=== PATIENT | female | born 1980 | race Caucasian/White ===

== ENCOUNTER 2016-07-20 01:17 | Emergency (ER) | payer SELFPAY ==
[2016-07-20 01:29] VITALS: BP 159/90; PULSE 84; RESP 161; TEMP 98.3; O2SAT 100
[2016-07-20] MEDS ORDERED: Albuterol-Ipratrop 3 mg / 0.5 (3 ml) UD INH STA (01:36)
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
== END 2016-07-20 02:51 | disposition home or self-care (01) ==
LOC: H.ER 01:17
DX: F41.0 Panic disorder [episodic paroxysmal anxiety] (principal); J45.909 Unspecified asthma, uncomplicated

== ENCOUNTER 2016-09-27 01:30 | Emergency (ER) | payer SELFPAY ==
[2016-09-27] MEDS ORDERED: Oxycodone/Acetaminophen 5/325 mg Tab PO STA (01:52)
[2016-09-27 01:53] VITALS: BP 144/92; PULSE 89; RESP 18; TEMP 99.1; O2SAT 100
[2016-09-27] MEDS ORDERED: Oxycodone/Acetaminophen 5/325 mg Tab ONE (01:54)
[2016-09-27 02:34] LABS: BARBITURATES, UR NEGATIVE (NEGATIVE); BENZODIAZEPINES, UR NEGATIVE (NEGATIVE); OPIATES, UR NEGATIVE (NEGATIVE); PHENCYCLIDINE, UR NEGATIVE (NEGATIVE)
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
== END 2016-09-27 06:00 | disposition home or self-care (01) ==
LOC: H.ER 01:30
DX: S59.002A Unspecified physeal fracture of lower end of ulna, left arm, initial encounter for closed fracture (principal); S09.90XA Unspecified injury of head, initial encounter; S99.922A Unspecified injury of left foot, initial encounter; Y04.0XXA Assault by unarmed brawl or fight, initial encounter; Y92.89 Other specified places as the place of occurrence of the external cause
CPT/HCPCS: 29105; 70450; 73080; 73630; 81025; 99284; G0480

== ENCOUNTER 2017-02-09 11:10 | Inpatient (IN) | payer MEDICAID, OTHER ==
[2017-02-09 11:20] VITALS: BMI 21.6
[2017-02-09] MEDS ORDERED: Morphine 4 MG/ML VIAL ONE (11:22)
[2017-02-09] MEDS ORDERED: Sodium Chloride 0.9% 1,000 ML IV STA (11:25)
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
--- NOTE | 2017-02-09 18:17 | RAD ---
PROCEDURE: Radiographs of the Left Forearm HISTORY: pain, deformity COMPARISON: None available. TECHNIQUE: Frontal and lateral views obtained. FINDINGS: BONES: Transverse fracture through the proximal diaphysis of the left radius is appreciated with an oblique fracture which is comminuted through the proximal diaphysis of the left ulna is identified. Both fractures appear distracted proximally and medially. No apparent dislocation throughout the right throughout the left wrist or elbow. OTHER FINDINGS: None. IMPRESSION: Proximal distracted fractures of the proximal diaphyses of the radius and ulna are identified.
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
[2017-02-09] MEDS ORDERED: IBUPROFEN PO PRN (19:12)
[2017-02-09] MEDS ORDERED: Albuterol-Ipratrop 3 mg / 0.5 (3 ml) UD INH PRN (19:39)
[2017-02-10 07:26] LABS: HEMOGLOBIN 12.4 g/dL (12.0-16.0); WHITE BLOOD COUNT 9.6 K/uL (4.8-10.8)
[2017-02-10 07:37] LABS: INR 1.1 (0.9-1.2); PROTHROMBIN TIME 12.2 Seconds (9.8-13.1)
[2017-02-10 07:41] LABS: ALB/GLOB RATIO 1.1 (1.0-2.1); ALBUMIN 3.7 g/dL (3.5-5.0); ALT/SGPT 35 U/L (9-52); AST/SGOT 25 U/L (14-36); BLOOD UREA NITROGEN 7 mg/dl (7-17); CALCIUM 8.4 mg/dL (8.4-10.2); GFR AFRICAN-AMERICAN > 60; GFR NON-AFRICAN AMERICAN > 60; HDL CHOLESTEROL 46 MG/DL (30-70)
[2017-02-10 07:52] LABS: LDL CHOLESTEROL 66 mg/dL (0-129); T4 9.36 ug/dl (5.5-11.0)
[2017-02-10 07:53] LABS: MEAN CELL VOLUME 91.6 fl (81.0-99.0); MEAN CORPUSCULAR HEMOGLOBIN 30.6 pg (27.0-31.0); MEAN CORPUSCULAR HGB CONC 33.4 g/dL (33.0-37.0); RBC 4.05 Mil/uL (3.80-5.20); RED CELL DISTRIBUTION WIDTH 14.3 % (11.5-14.5)
--- NOTE | 2017-02-10 09:28 | RAD ---
HISTORY: Hx Asthma COMPARISON: No prior. TECHNIQUE: Chest PA and lateral FINDINGS: LUNGS: No active pulmonary disease. PLEURA: No significant pleural effusion identified. No pneumothorax apparent. CARDIOVASCULAR: Normal. OSSEOUS STRUCTURES: No significant abnormalities. VISUALIZED UPPER ABDOMEN: Normal. OTHER FINDINGS: None. IMPRESSION: No interval acute cardiopulmonary disease appreciated.
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
[2017-02-10 12:41] LABS: SQUAMOUS EPITHIAL 11 /hpf (0-5); URINE BACTERIA OCC (<OCC); URINE BILIRUBIN NEGATIVE (NEGATIVE); URINE BLOOD SMALL (NEGATIVE); URINE CLARITY CLOUDY (Clear); URINE COLOR YELLOW (YELLOW); URINE GLUCOSE (UA) NEG (Normal); URINE LEUKOCYTE ESTERASE NEG Leu/uL (Negative); URINE NITRATE POSITIVE (NEGATIVE); URINE PROTEIN 30 mg/dL (NEGATIVE); URINE UROBILINOGEN 0.2-1.0 mg/dL (0.2-1.0)
[2017-02-10] MEDS ORDERED: methylPREDNISolone 75 MG in Sodium Chloride 0.9% 50 ML IV ONE (13:10)
[2017-02-10] MEDS ORDERED: methylPREDNISolone 40 MG in Sodium Chloride 0.9% 50 ML IVPB SCH (17:00)
[2017-02-10] MEDS: cefTRIAXone IV 1 gm in Dextros 50 ML IVPB SCH (18:12)
[2017-02-10] MEDS: Pantoprazole 40 mg EC Tab PO SCH (18:14)
[2017-02-10] MEDS: MethylPREDNISolone 40 mg Vial IVP SCH (18:56)
[2017-02-10] MEDS: Azithromycin 500 MG in Sodium Chloride 0.9% 250 ML IVPB SCH (18:59)
[2017-02-11] MEDS: MethylPREDNISolone 40 mg Vial IVP SCH ×3 (01:01→16:52)
[2017-02-11] MEDS ORDERED: Dextrose 5%/0.45% NS 1,000 ML IV SCH (09:45)
[2017-02-11] MEDS: Albuterol-Ipratrop 3 mg / 0.5 (3 ml) UD INH SCH ×3 (10:35→19:07)
[2017-02-11] MEDS: Pantoprazole 40 mg EC Tab PO SCH (10:45)
[2017-02-11 12:33] LABS: ABG ALLEN TEST YES; ARTERIAL BLOOD GAS HEMOGLOBIN 12.8 g/dL (11.7-17.4); ARTERIAL BLOOD GAS O2 CAPACITY 17.6 mL/dL (16-24); ARTERIAL BLOOD GAS O2 CONTENT 17.4 ML/dL (15-23); ARTERIAL BLOOD GAS O2 SAT 98.9 % (95-98); ARTERIAL BLOOD GAS PCO2 34 mm/Hg (35-45); ARTERIAL BLOOD GAS PH 7.43 (7.35-7.45); ARTERIAL BLOOD GAS PO2 99 mm/Hg (80-100); ARTERIAL BLOOD GAS TCO2 23.6 mmol/L (22-28)
[2017-02-11] MEDS: cefTRIAXone IV 1 gm in Dextros 50 ML IVPB SCH (13:31)
--- NOTE | 2017-02-11 13:55 | CP.PCM.PN ---
Subjective - Date & Time of Evaluation Date of Evaluation: 02/11/17 Time of Evaluation: 10:10 - Subjective Subjective: F/U Fx Forearm Pt with cough, scanty amount of phlegms with difficulty to bring up, c/o of chest congestion. Objective - Vital Signs/Intake and Output Vital Signs (last 24 hours): Temp Pulse Resp BP Pulse Ox 98.6 F 72 20 107/68 98 02/11/17 07:34 02/11/17 10:36 02/11/17 07:34 02/11/17 07:34 02/11/17 07:34 - Medications Medications: Current Medications Albuterol/Ipratropium (Duoneb 3 Mg/0.5 Mg (3 Ml) Ud) 3 ml INH RQ6 [facility] Last Admin: 02/11/17 13:10 Dose: 3 ml Hydromorphone HCl (Dilaudid) 1 mg IV Q4 PRN PRN Reason: Pain, severe (8-10) Last Admin: 02/11/17 10:43 Dose: 1 mg Ceftriaxone Sodium (Rocephin Iv 1 Gm Duplex) 50 mls @ 50 mls/hr IVPB DAILY@ 1315 KRISTEN PRN Reason: Protocol Last Admin: 02/11/17 13:31 Dose: 50 mls/hr Azithromycin 500 mg/ Sodium (Chloride) 250 mls @ 250 mls/hr IVPB DAILY@1330 KRISTEN PRN Reason: Protocol Last Admin: 02/10/17 18:59 Dose: 250 mls/hr Dextrose/Sodium Chloride (Dextrose 5%/0.45% Ns 1000 Ml) 1,000 mls @ 80 mls/hr IV .[id number] [facility] Stop: 02/12/17 09:37 Methylprednisolone (Solu-Medrol) 40 mg IVP Q8 [facility] Last Admin: 02/11/17 10:44 Dose: 40 mg Ondansetron HCl (Zofran Inj) 4 mg IVP Q4 PRN PRN Reason: Nausea/Vomiting Last Admin: 02/11/17 02:13 Dose: 4 mg Pantoprazole Sodium (Protonix Ec Tab) 40 mg PO DAILY [facility] Last Admin: 02/11/17 10:45 Dose: Not Given Tramadol HCl (Ultram) 50 mg PO Q6 PRN PRN Reason: Pain, moderate (4-7) Last Admin: 02/11/17 13:31 Dose: 50 mg - Labs Labs: 02/10/17 07:14 02/10/17 07:14 PT 12.2 Seconds (9.8-13.1) 02/10/17 07:14 INR 1.1 (0.9-1.2) 02/10/17 07:14 APTT 31.7 Seconds (25.6-37.1) 02/10/17 12:15 - Constitutional Appears: No Acute Distress - Head Exam Head Exam: NORMAL INSPECTION - Eye Exam Eye Exam: PERRL - ENT Exam ENT Exam: Normal Exam - Neck Exam Neck Exam: Normal Inspection - Respiratory Exam Respiratory Exam: Decreased Breath Sounds (at bases), Rhonchi (few scattered at bases) - Cardiovascular Exam Cardiovascular Exam: REGULAR RHYTHM, Murmur (systolic, 2/6 LSB) - GI/Abdominal Exam GI & Abdominal Exam: Soft, Normal Bowel Sounds - Extremities Exam Additional comments: LUE immobilized, neuromuscular status distal good. - Back Exam Back Exam: NORMAL INSPECTION - Neurological Exam Neurological Exam: Alert, CN II-XII Intact, Oriented x3. absent: Motor Sensory Deficit - Psychiatric Exam Psychiatric exam: Normal Affect, Normal Mood - Skin Skin Exam: Warm Assessment and Plan (1) Forearm fractures, both bones, closed Status: Acute (2) Asthmatic bronchitis Status: Acute - Assessment and Plan (Free Text) Plan: F/U ABG, Brownlee flowTx, continue Zithromax, Rocephin Solumedrol and rest ot of Tx. Pt is not clear for surgery.
[2017-02-11] MEDS: Azithromycin 500 MG in Sodium Chloride 0.9% 250 ML IVPB SCH (14:46)
--- NOTE | 2017-02-11 16:55 | CARD ---
APPROVED REPORT EKG Measurement Heart [id number] <Conclusion> Poor data quality, interpretation may be adversely affected Normal sinus rhythm Possible Left atrial enlargement T wave abnormality, consider anterior ischemia Abnormal ECG
[2017-02-12] MEDS: MethylPREDNISolone 40 mg Vial IVP SCH ×3 (00:05→16:55)
[2017-02-12] MEDS: Albuterol-Ipratrop 3 mg / 0.5 (3 ml) UD INH SCH ×4 (01:12→20:10)
[2017-02-12 06:07] LABS: HEMOGLOBIN 12.2 g/dL (12.0-16.0); MEAN CELL VOLUME 91.9 fl (81.0-99.0); MEAN CORPUSCULAR HEMOGLOBIN 29.9 pg (27.0-31.0); MEAN CORPUSCULAR HGB CONC 32.5 g/dL (33.0-37.0); RBC 4.08 Mil/uL (3.80-5.20); RED CELL DISTRIBUTION WIDTH 14.3 % (11.5-14.5); WHITE BLOOD COUNT 16.1 K/uL (4.8-10.8)
[2017-02-12 06:15] LABS: BLOOD UREA NITROGEN 9 mg/dl (7-17); CALCIUM 9.1 mg/dL (8.4-10.2); GFR AFRICAN-AMERICAN > 60; GFR NON-AFRICAN AMERICAN > 60
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
[2017-02-12] MEDS: Pantoprazole 40 mg EC Tab PO SCH (08:58)
[2017-02-12] MEDS: Azithromycin 500 MG in Sodium Chloride 0.9% 250 ML IVPB SCH (13:55)
[2017-02-12] MEDS: cefTRIAXone IV 1 gm in Dextros 50 ML IVPB SCH (13:57)
--- NOTE | 2017-02-12 14:06 | CP.PCM.PN ---
Subjective - Date & Time of Evaluation Date of Evaluation: 02/12/17 - Subjective Subjective: F/U Fx R Forearm. SOB, no cough, no chest congestion. Objective - Vital Signs/Intake and Output Vital Signs (last 24 hours): Temp Pulse Resp BP Pulse Ox 98.0 F 68 18 111/68 96 02/12/17 08:01 02/12/17 08:01 02/12/17 08:01 02/12/17 08:01 02/12/17 08:01 - Medications Medications: Current Medications Albuterol/Ipratropium (Duoneb 3 Mg/0.5 Mg (3 Ml) Ud) 3 ml INH RQ6 [facility] Last Admin: 02/12/17 13:25 Dose: 3 ml Hydromorphone HCl (Dilaudid) 1 mg IV Q4 PRN PRN Reason: Pain, severe (8-10) Last Admin: 02/12/17 10:00 Dose: 1 mg Ceftriaxone Sodium (Rocephin Iv 1 Gm Duplex) 50 mls @ 50 mls/hr IVPB DAILY@ 1315 [facility] PRN Reason: Protocol Last Admin: 02/12/17 13:57 Dose: 50 mls/hr Azithromycin 500 mg/ Sodium (Chloride) 250 mls @ 250 mls/hr IVPB DAILY@1330 [facility] PRN Reason: Protocol Last Admin: 02/12/17 13:55 Dose: 250 mls/hr Methylprednisolone (Solu-Medrol) 40 mg IVP Q8 [facility] Last Admin: 02/12/17 08:56 Dose: 40 mg Ondansetron HCl (Zofran Inj) 4 mg IVP Q4 PRN PRN Reason: Nausea/Vomiting Last Admin: 02/12/17 05:46 Dose: 4 mg Pantoprazole Sodium (Protonix Ec Tab) 40 mg PO DAILY [facility] Last Admin: 02/12/17 08:58 Dose: 40 mg Tramadol HCl (Ultram) 50 mg PO Q6 PRN PRN Reason: Pain, moderate (4-7) Last Admin: 02/12/17 13:54 Dose: 50 mg - Labs Labs: 02/12/17 05:30 02/12/17 05:30 PT 12.2 Seconds (9.8-13.1) 02/10/17 07:14 INR 1.1 (0.9-1.2) 02/10/17 07:14 APTT 31.7 Seconds (25.6-37.1) 02/10/17 12:15 - Constitutional Appears: No Acute Distress - Head Exam Head Exam: NORMAL INSPECTION - Eye Exam Eye Exam: PERRL - ENT Exam ENT Exam: Normal Exam - Neck Exam Neck Exam: Normal Inspection - Respiratory Exam Respiratory Exam: Decreased Breath Sounds (at bases) - Cardiovascular Exam Cardiovascular Exam: REGULAR RHYTHM, Murmur (systolic 2/6 LSB) - GI/Abdominal Exam GI & Abdominal Exam: Soft, Normal Bowel Sounds - Extremities Exam Additional comments: LUE immobilized, neuromuscular status distal good - Back Exam Back Exam: NORMAL INSPECTION - Neurological Exam Neurological Exam: Alert, CN II-XII Intact, Oriented x3. absent: Motor Sensory Deficit - Psychiatric Exam Psychiatric exam: Normal Affect, Normal Mood - Skin Skin Exam: Warm Assessment and Plan (1) Forearm fractures, both bones, closed Status: Acute (2) Asthmatic bronchitis Status: Acute - Assessment and Plan (Free Text) Plan: EKG: T wave abnormality. f/u Echo, Continue Solumedrol, Duoneb. Cardiac consult.
[2017-02-13] MEDS: MethylPREDNISolone 40 mg Vial IVP SCH ×3 (00:32→16:32)
[2017-02-13] MEDS: Albuterol-Ipratrop 3 mg / 0.5 (3 ml) UD INH SCH ×4 (01:04→20:21)
[2017-02-13] MEDS: Pantoprazole 40 mg EC Tab PO SCH (09:09)
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
--- NOTE | 2017-02-13 09:43 | CARD ---
APPROVED REPORT EXAM: Two-dimensional and M-mode echocardiogram with Doppler and color Doppler. Other Information Quality : GoodRhythm : NSR INDICATION Abnormal EKG/Arrhythmia Pre-Op 2D DIMENSIONS IVSd0.81 (0.7-1.1cm)LVDd4.40 (3.9-5.9cm) LVOT Diameter2.04 (1.8-2.4cm)PWd0.72 (0.7-1.1cm) IVSs1.19 (0.8-1.2cm)LVDs2.64 (2.5-4.0cm) FS (%) 39.9 %PWs1.26 (0.8-1.2cm) M-Mode DIMENSIONS Left Atrium (MM)3.39 (2.5-4.0cm)IVSd0.86 (0.7-1.1cm) Aortic Root2.46 (2.2-3.7cm)LVDd4.54 (4.0-5.6cm) Aortic Cusp Exc.1.77 (1.5-2.0cm)PWd0.86 (0.7-1.1cm) IVSs1.41 cmFS (%) 49 % LVDs2.32 (2.0-3.8cm)PWs1.27 cm Mitral Valve MV E Gzvmyoec636.8cm/sMV DECEL [id number] A Ptglskjn72.1cm/s MV ZLW38eoQ/A ratio3.3MVA (PHT)3.90cm2 TDI Lateral E' Peak V12.87cm/sMedial E' Peak V14.34cm/sE/Lateral E'10.2 E/Medial E'9.2 Pulmonary Valve PV Peak Tdjejvqt28.3cm/s LEFT VENTRICLE The left ventricle is normal size. There is normal left ventricular wall thickness. The left ventricular function is normal. The left ventricular ejection fraction is 55-60% There is normal LV segmental wall motion. The left ventricular diastolic function is normal. No left ventricle thrombus noted on this study. There is no ventricular septal defect visualized. There is no left ventricular aneurysm. There is no mass noted in the left ventricle. RIGHT VENTRICLE The right ventricle is normal size. There is normal right ventricular wall thickness. The right ventricular systolic function is normal. ATRIA The left atrium size is normal. The right atrium size is normal. The interatrial septum is intact with no evidence for an atrial septal defect. AORTIC VALVE The aortic valve is normal in structure. No aortic regurgitation is present. There is no aortic valvular stenosis. There is no aortic valvular vegetation. MITRAL VALVE The mitral valve is normal in structure. There is no evidence of mitral valve prolapse. There is no mitral valve stenosis. There is no mitral valve regurgitation noted. TRICUSPID VALVE The tricuspid valve is normal in structure. There is no tricuspid valve regurgitation noted. There is no tricuspid valve prolapse or vegetation. There is no tricuspid valve stenosis. PULMONIC VALVE The pulmonary valve is normal in structure. There is no pulmonic valvular regurgitation. There is no pulmonic valvular stenosis. GREAT VESSELS The aortic root is normal in size. The ascending aorta is normal in size. The IVC is normal in size and collapses >50% with inspiration. PERICARDIAL EFFUSION The pericardium appears normal. There is no pleural effusion. <Conclusion> Normal Echocardiogram
--- NOTE | 2017-02-13 11:56 | CARD ---
APPROVED REPORT EKG Measurement Heart [id number] IA [id number] [id number] <Conclusion> Normal sinus rhythm with sinus arrhythmia Possible Left atrial enlargement Nonspecific T wave abnormality Abnormal ECG
[2017-02-13] MEDS: Azithromycin 500 MG in Sodium Chloride 0.9% 250 ML IVPB SCH (12:52)
[2017-02-13] MEDS: cefTRIAXone IV 1 gm in Dextros 50 ML IVPB SCH (12:52)
--- NOTE | 2017-02-13 15:01 | CP.PCM.PN ---
Subjective - Date & Time of Evaluation Date of Evaluation: 02/13/17 Time of Evaluation: 11:40 - Subjective Subjective: F/U Fx. R Forearm no AD, no Chest congestion, occasional dry cough Objective - Vital Signs/Intake and Output Vital Signs (last 24 hours): Temp Pulse Resp BP Pulse Ox 98.1 F 78 20 126/75 98 02/13/17 07:43 02/13/17 07:43 02/13/17 07:43 02/13/17 07:43 02/13/17 07:43 - Medications Medications: Current Medications Albuterol/Ipratropium (Duoneb 3 Mg/0.5 Mg (3 Ml) Ud) 3 ml INH RQ6 [facility] Last Admin: 02/13/17 13:19 Dose: 3 ml Hydromorphone HCl (Dilaudid) 1 mg IV Q4 PRN PRN Reason: Pain, severe (8-10) Last Admin: 02/13/17 13:29 Dose: 1 mg Ceftriaxone Sodium (Rocephin Iv 1 Gm Duplex) 50 mls @ 50 mls/hr IVPB DAILY@ 1315 [facility] PRN Reason: Protocol Last Admin: 02/13/17 12:52 Dose: 50 mls/hr Azithromycin 500 mg/ Sodium (Chloride) 250 mls @ 250 mls/hr IVPB DAILY@1330 [facility] PRN Reason: Protocol Last Admin: 02/13/17 12:52 Dose: 250 mls/hr Methylprednisolone (Solu-Medrol) 40 mg IVP Q8 [facility] Last Admin: 02/13/17 09:08 Dose: 40 mg Ondansetron HCl (Zofran Inj) 4 mg IVP Q4 PRN PRN Reason: Nausea/Vomiting Last Admin: 02/12/17 05:46 Dose: 4 mg Pantoprazole Sodium (Protonix Ec Tab) 40 mg PO DAILY [facility] Last Admin: 02/13/17 09:09 Dose: 40 mg Tramadol HCl (Ultram) 50 mg PO Q6 PRN PRN Reason: Pain, moderate (4-7) Last Admin: 02/13/17 00:30 Dose: 50 mg - Labs Labs: 02/12/17 05:30 02/12/17 05:30 PT 12.2 Seconds (9.8-13.1) 02/10/17 07:14 INR 1.1 (0.9-1.2) 02/10/17 07:14 APTT 31.7 Seconds (25.6-37.1) 02/10/17 12:15 - Constitutional Appears: No Acute Distress - Head Exam Head Exam: NORMAL INSPECTION - Eye Exam Eye Exam: PERRL - ENT Exam ENT Exam: Normal Exam - Neck Exam Neck Exam: Normal Inspection - Respiratory Exam Respiratory Exam: NORMAL BREATHING PATTERN - Cardiovascular Exam Cardiovascular Exam: REGULAR RHYTHM, Murmur (systolic 2/6 LSB) - GI/Abdominal Exam GI & Abdominal Exam: Soft, Normal Bowel Sounds - Extremities Exam Additional comments: LUE immobilized, neuromuscular status distal good. - Back Exam Back Exam: NORMAL INSPECTION - Neurological Exam Neurological Exam: Alert, CN II-XII Intact, Oriented x3. absent: Motor Sensory Deficit - Psychiatric Exam Psychiatric exam: Normal Affect, Normal Mood - Skin Skin Exam: Warm Assessment and Plan (1) Forearm fractures, both bones, closed Status: Acute (2) Asthmatic bronchitis Status: Resolved - Assessment and Plan (Free Text) Plan: EKG , ECHO (normal) , blood test were reviewed , wbc 16.1 steroids , Cardioligy cleared , Patient is medically cleared for Surgery, continue Solu Medrol , Duo Neb and rest of medicatiions.
[2017-02-14] MEDS: MethylPREDNISolone 40 mg Vial IVP SCH ×3 (00:34→17:48)
[2017-02-14] MEDS: Albuterol-Ipratrop 3 mg / 0.5 (3 ml) UD INH SCH ×4 (01:00→19:47)
[2017-02-14] MEDS: Pantoprazole 40 mg EC Tab PO SCH (09:48)
[2017-02-14] MEDS ORDERED: Propofol 10 mg/ml Inj (20 ML) ONE (10:02)
[2017-02-14] MEDS ORDERED: Lidocaine 1% 5ml Abboject IV ONE (10:03)
[2017-02-14] MEDS ORDERED: Midazolam 2 MG/2 ML VIAL ONE (10:03)
[2017-02-14] MEDS ORDERED: Dexamethasone 4 mg/1 ml ONE (10:03)
[2017-02-14] MEDS ORDERED: Ropivacaine 0.5% 30ML IV ONE (10:50)
[2017-02-14] MEDS ORDERED: ceFAZolin IV 1 gm in Dextrose 1 GM/50 ML BAG IVPB ONE (10:51)
[2017-02-14] MEDS ORDERED: ceFAZolin IV 1 gm in Dextrose 0 GM/0 ML BAG IVPB ONE (10:51)
[2017-02-14] MEDS ORDERED: Dextrose 5%/0.45% NS 1,000 ML IV ONE (11:58)
[2017-02-14] MEDS: cefTRIAXone IV 1 gm in Dextros 50 ML IVPB SCH (13:15)
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
--- NOTE | 2017-02-14 15:57 | RAD ---
PROCEDURE: Radiographs of the Left Forearm HISTORY: pt in pacu s/p ORIF COMPARISON: Left forearm radiograph 02/09/2017.. TECHNIQUE: Frontal and lateral views obtained. FINDINGS: Partial cast material obscures fine bone and soft-tissue detail. BONES: Patient status post open reduction internal fixation of mid diaphyseal radius and ulnar fractures of the left forearm via compression plates and transfixing screws separately reducing each fracture. No definite callus formation is appreciated at this time. JOINT SPACES: Unremarkable. OTHER FINDINGS: None. IMPRESSION: Status post ORIF mid diaphyseal fractures of the left radius and ulna as discussed above.
--- NOTE | 2017-02-14 16:26 | CP.PCM.PN ---
Objective - Vital Signs/Intake and Output Vital Signs (last 24 hours): Temp Pulse Resp BP Pulse Ox 98.2 F 77 18 119/77 99 02/14/17 15:59 02/14/17 15:59 02/14/17 15:59 02/14/17 15:59 02/14/17 15:59 Intake and Output: 02/14/17 02/14/17 06:59 18:59 Intake Total 1000 Output Total 600 Balance 400 - Medications Medications: Current Medications Albuterol/Ipratropium (Duoneb 3 Mg/0.5 Mg (3 Ml) Ud) 3 ml INH RQ6 [facility] Last Admin: 02/14/17 14:33 Dose: Not Given Hydromorphone HCl (Dilaudid) 0.5 mg IV Q4 PRN PRN Reason: Pain, severe (8-10) Ceftriaxone Sodium (Rocephin Iv 1 Gm Duplex) 50 mls @ 50 mls/hr IVPB DAILY@ 1315 [facility] PRN Reason: Protocol Last Admin: 02/13/17 12:52 Dose: 50 mls/hr Azithromycin 500 mg/ Sodium (Chloride) 250 mls @ 250 mls/hr IVPB DAILY@1330 [facility] PRN Reason: Protocol Last Admin: 02/13/17 12:52 Dose: 250 mls/hr Cefazolin Sodium/Dextrose (Ancef Iv 1 Gm Duplex) 1 gm in 50 mls @ 50 mls/hr IVPB Q8 [facility] PRN Reason: Protocol Stop: 02/15/17 01:59 Methylprednisolone (Solu-Medrol) 40 mg IVP Q8 [facility] Last Admin: 02/14/17 09:48 Dose: 40 mg Ondansetron HCl (Zofran Inj) 4 mg IVP Q4 PRN PRN Reason: Nausea/Vomiting Last Admin: 02/12/17 05:46 Dose: 4 mg Pantoprazole Sodium (Protonix Ec Tab) 40 mg PO DAILY [facility] Last Admin: 02/14/17 09:48 Dose: Not Given Tramadol HCl (Ultram) 50 mg PO Q6 PRN PRN Reason: Pain, moderate (4-7) Last Admin: 02/13/17 23:33 Dose: 50 mg - Labs Labs: 02/12/17 05:30 02/12/17 05:30 PT 12.2 Seconds (9.8-13.1) 02/10/17 07:14 INR 1.1 (0.9-1.2) 02/10/17 07:14 APTT 31.7 Seconds (25.6-37.1) 02/10/17 12:15 Assessment and Plan (1) Forearm fractures, both bones, closed Status: Acute (2) Asthmatic bronchitis Status: Resolved
[2017-02-14] MEDS: ceFAZolin IV 1 gm in Dextrose 1 GM/50 ML BAG IVPB SCH (17:46)
[2017-02-14] MEDS: Azithromycin 500 MG in Sodium Chloride 0.9% 250 ML IVPB SCH (17:48)
--- NOTE | 2017-02-14 18:01 | RAD ---
PROCEDURE: Fluoroscopy up to 1 hr. HISTORY: LEFT FOREARM COMPARISON: None TECHNIQUE: Standard protocol for this study/examination. FINDINGS: Total fluoroscopic time (continuous mode) utilized during the procedure: 21.3 seconds. IMPRESSION: Submitted images from the current procedure: 19.0
[2017-02-15] MEDS: MethylPREDNISolone 40 mg Vial IVP SCH (01:01)
[2017-02-15] MEDS: ceFAZolin IV 1 gm in Dextrose 1 GM/50 ML BAG IVPB SCH (01:02)
[2017-02-15] MEDS: Albuterol-Ipratrop 3 mg / 0.5 (3 ml) UD INH SCH ×3 (01:08→14:00)
[2017-02-15 05:55] LABS: HEMOGLOBIN 12.2 g/dL (12.0-16.0); MEAN CELL VOLUME 90.6 fl (81.0-99.0); MEAN CORPUSCULAR HEMOGLOBIN 30.1 pg (27.0-31.0); MEAN CORPUSCULAR HGB CONC 33.2 g/dL (33.0-37.0); RBC 4.05 Mil/uL (3.80-5.20)
[2017-02-15 07:41] LABS: BLOOD UREA NITROGEN 15 mg/dl (7-17); GFR AFRICAN-AMERICAN > 60; GFR NON-AFRICAN AMERICAN > 60
[2017-02-15] MEDS ORDERED: Oxycodone/Acetaminophen 5/325 mg Tab PO PRN (08:49)
[2017-02-15] MEDS ORDERED: MethylPREDNISolone 40 mg Vial IVP SCH (09:04)
[2017-02-15] MEDS ORDERED: Enoxaparin 40 mg Syringe SC SCH (09:15)
[2017-02-15] MEDS: Oxycodone/Acetaminophen 5/325 mg Tab PO PRN ×3 (09:23→17:35)
[2017-02-15] MEDS: Pantoprazole 40 mg EC Tab PO SCH (09:27)
--- NOTE | 2017-02-15 09:38 | CP.PCM.PN ---
Subjective - Date & Time of Evaluation Date of Evaluation: 02/15/17 Time of Evaluation: 09:38 - Subjective Subjective: Patient states she has a lot of pain, but the pain medication helps. Denies numbness/tingling. Denies CP/SOB/cough Objective - Vital Signs/Intake and Output Vital Signs (last 24 hours): Temp Pulse Resp BP Pulse Ox 98.2 F 79 19 131/83 98 02/15/17 08:02 02/15/17 08:02 02/15/17 08:02 02/15/17 08:02 02/15/17 08:02 - Medications Medications: Current Medications Albuterol/Ipratropium (Duoneb 3 Mg/0.5 Mg (3 Ml) Ud) 3 ml INH RQ6 [facility] Last Admin: 02/15/17 07:19 Dose: 3 ml Enoxaparin Sodium (Lovenox) 40 mg SC DAILY [facility] PRN Reason: Protocol Hydromorphone HCl (Dilaudid) 0.5 mg IV Q4 PRN PRN Reason: Pain, severe (8-10) Last Admin: 02/15/17 04:43 Dose: 0.5 mg Ceftriaxone Sodium (Rocephin Iv 1 Gm Duplex) 50 mls @ 50 mls/hr IVPB DAILY@ 1315 [facility] PRN Reason: Protocol Last Admin: 02/14/17 13:15 Dose: Not Given Azithromycin 500 mg/ Sodium (Chloride) 250 mls @ 250 mls/hr IVPB DAILY@1330 [facility] PRN Reason: Protocol Last Admin: 02/14/17 17:48 Dose: Not Given Methylprednisolone (Solu-Medrol) 20 mg IVP Q8 [facility] Ondansetron HCl (Zofran Inj) 4 mg IVP Q4 PRN PRN Reason: Nausea/Vomiting Last Admin: 02/12/17 05:46 Dose: 4 mg Oxycodone/Acetaminophen (Percocet 5/325 Mg Tab) 1 tab PO Q4 PRN PRN Reason: Pain, moderate (4-7) Stop: 02/18/17 08:50 Oxycodone/Acetaminophen (Percocet 5/325 Mg Tab) 2 tab PO Q4 PRN PRN Reason: Pain, severe (8-10) Stop: 02/18/17 08:51 Last Admin: 02/15/17 09:23 Dose: 2 tab Pantoprazole Sodium (Protonix Ec Tab) 40 mg PO DAILY [facility] Last Admin: 02/15/17 09:27 Dose: 40 mg Tramadol HCl (Ultram) 50 mg PO Q6 PRN PRN Reason: Pain, moderate (4-7) Last Admin: 02/15/17 06:43 Dose: 50 mg - Labs Labs: 02/15/17 05:40 02/15/17 05:40 PT 12.2 Seconds (9.8-13.1) 02/10/17 07:14 INR 1.1 (0.9-1.2) 02/10/17 07:14 APTT 31.7 Seconds (25.6-37.1) 02/10/17 12:15 - Extremities Exam Additional comments: LUE: elevated. +ROM fingers/wrist flex/ext/add/abd, sensation intact to med/ul/ rad n. fingers warm, good cap refill, splint intact Assessment and Plan (1) Forearm fractures, both bones, closed Assessment & Plan: POD#1 s/p ORIF left both bone fx -elevation and ice at all times -patient comfortable on exam, compartments soft, no clinical suspicion of compartment syndrome -ortho stable for d/c -[employer] patient report reviewed, last rx tramadol 08/2016. Patient counseled on the risks of addiction, physical or psychological dependence, and overdose associated with opioid drugs and the danger of taking opioid drugs with alcohol and other central nervous system depressants, and cautioned patient on storage and disposal. -percocet rx #40 -call for f/u appt in 7-10 days -ortho stable for d/c home -d/w Dr. ramesh agrees [facility] above Status: Acute
[2017-02-15] MEDS: Azithromycin 500 MG in Sodium Chloride 0.9% 250 ML IVPB SCH (13:50)
[2017-02-15] MEDS: cefTRIAXone IV 1 gm in Dextros 50 ML IVPB SCH (13:51)
[2017-02-15 16:15] VITALS: BP 115/74; PULSE 77; RESP 18; TEMP 98.1; O2SAT 97
--- NOTE | 2017-02-15 16:57 | CP.PCM.DIS ---
Provider - Provider Date of Admission: 02/09/17 15:44 Attending physician: Aashish Sanchez MD Primary care physician: Dr. Sanchez Consults: Dr. Ramesh (orthopedic) Dr. Roberto Toro (cardiology) Time Spent in preparation of Discharge (in minutes): 25 Hospital Course - Lab Results Lab Results: Micro Results 02/11/17 19:59 Urine,Clean Catch Urine Culture - Final No Growth (<1,000 CFU/ML) Most Recent Lab Values WBC 17.0 K/uL (4.8-10.8) H 02/15/17 05:40 RBC 4.05 Mil/uL (3.80-5.20) 02/15/17 05:40 Hgb 12.2 g/dL (12.0-16.0) 02/15/17 05:40 Hct 36.7 % (34.0-47.0) 02/15/17 05:40 MCV 90.6 fl (81.0-99.0) 02/15/17 05:40 MCH 30.1 pg (27.0-31.0) 02/15/17 05:40 MCHC 33.2 g/dL (33.0-37.0) 02/15/17 05:40 RDW 14.0 % (11.5-14.5) 02/15/17 05:40 Plt Count 261 K/uL (130-400) 02/15/17 05:40 PT 12.2 Seconds (9.8-13.1) 02/10/17 07:14 INR 1.1 (0.9-1.2) 02/10/17 07:14 APTT 31.7 Seconds (25.6-37.1) 02/10/17 12:15 pCO2 34 mm/Hg (35-45) L 02/11/17 12:28 pO2 99 mm/Hg (80-100) 02/11/17 12:28 HCO3 24.0 mmol/L (21-28) 02/11/17 12:28 ABG pH 7.43 (7.35-7.45) 02/11/17 12:28 ABG Total CO2 23.6 mmol/L (22-28) 02/11/17 12:28 ABG O2 Saturation 98.9 % (95-98) H 02/11/17 12:28 ABG O2 Content 17.4 ML/dL (15-23) 02/11/17 12:28 ABG Base Excess -1.2 mmol/L (-2.0-3.0) 02/11/17 12:28 ABG Hemoglobin 12.8 g/dL (11.7-17.4) 02/11/17 12:28 ABG Carboxyhemoglobin 1.6 % (0.5-1.5) H 02/11/17 12:28 POC ABG HHb (Measured) 1.1 % (0.0-5.0) 02/11/17 12:28 ABG Methemoglobin 1.3 % (0.0-3.0) 02/11/17 12:28 ABG O2 Capacity 17.6 mL/dL (16-24) 02/11/17 12:28 Rufino Test Yes 02/11/17 12:28 A-a O2 Difference 8.0 mm/Hg 02/11/17 12:28 Hgb O2 Saturation 96.0 % (95.0-98.0) 02/11/17 12:28 FiO2 21.0 % 02/11/17 12:28 Sodium 138 mmol/l (132-148) 02/15/17 05:40 Potassium 3.9 MMOL/L (3.6-5.0) 02/15/17 05:40 Chloride 102 mmol/L (98-107) 02/15/17 05:40 Carbon Dioxide 27 mmol/L (22-30) 02/15/17 05:40 Anion Gap 13 (10-20) 02/15/17 05:40 BUN 15 mg/dl (7-17) 02/15/17 05:40 Creatinine 0.6 mg/dl (0.7-1.2) L 02/15/17 05:40 Est GFR ( Amer) > 60 02/15/17 05:40 Est GFR (Non-Af Amer) > 60 02/15/17 05:40 POC Glucose (mg/dL) 85 mg/dL (65-110) 02/09/17 17:40 Random Glucose 142 mg/dL (65-105) H 02/15/17 05:40 Calcium 9.0 mg/dL (8.4-10.2) 02/15/17 05:40 Total Bilirubin 0.5 mg/dl (0.2-1.3) 02/10/17 07:14 AST 25 U/L (14-36) 02/10/17 07:14 ALT 35 U/L (9-52) 02/10/17 07:14 Alkaline Phosphatase 62 U/L (38-126) 02/10/17 07:14 Total Protein 6.9 G/DL (6.3-8.2) 02/10/17 07:14 Albumin 3.7 g/dL (3.5-5.0) 02/10/17 07:14 Globulin 3.2 gm/dL (2.2-3.9) 02/10/17 07:14 Albumin/Globulin Ratio 1.1 (1.0-2.1) 02/10/17 07:14 Triglycerides 67 mg/DL (0-149) 02/10/17 07:14 Cholesterol 128 mg/dL (0-199) 02/10/17 07:14 LDL Cholesterol Direct 66 mg/dL (0-129) 02/10/17 07:14 HDL Cholesterol 46 MG/DL (30-70) 02/10/17 07:14 Thyroxine (T4) 9.36 ug/dl (5.5-11.0) 02/10/17 07:14 TSH 3rd Generation 3.12 mIU/ML (0.46-4.68) 02/10/17 07:14 Urine Color Yellow (YELLOW) 02/10/17 12:22 Urine Clarity Cloudy (Clear) 02/10/17 12:22 Urine pH 6.0 (5.0-8.0) 02/10/17 12:22 Ur Specific [place] 1.020 (1.003-1.030) 02/10/17 12:22 Urine Protein 30 mg/dL (NEGATIVE) 02/10/17 12:22 Urine Glucose (UA) Neg mg/dL (Normal) 02/10/17 12:22 Urine Ketones 80 mg/dL (NEGATIVE) 02/10/17 12:22 Urine Blood Small (NEGATIVE) 02/10/17 12:22 Urine Nitrate Positive (NEGATIVE) H 02/10/17 12:22 Urine Bilirubin Negative (NEGATIVE) 02/10/17 12:22 Urine Urobilinogen 0.2-1.0 mg/dL (0.2-1.0) 02/10/17 12:22 Ur Leukocyte Esterase Neg Brian/uL (Negative) 02/10/17 12:22 Urine RBC (Auto) 6 /hpf (0-3) H 02/10/17 12:22 Urine Microscopic WBC 8 /hpf (0-5) H 02/10/17 12:22 Ur Squamous Epith Cells 11 /hpf (0-5) H 02/10/17 12:22 Urine Bacteria Occ (<OCC) H 02/10/17 12:22 Discharge Exam - Head Exam Head Exam: NORMAL INSPECTION Discharge Plan - Discharge Medications Prescriptions: Methylprednisolone [Medrol Dose Pack (21 tabs)] 4 mg PO ASDIR #21 mg oxyCODONE/Acetaminophen [Percocet 5/325 mg Tab] 2 ea PO Q4H PRN #40 tab PRN Reason: Pain, Moderate (4-7) - Follow Up Plan Condition: STABLE Disposition: HOME/ ROUTINE Instructions: Arm Fracture in Adults (DC), ORIF of an Arm Fracture (DC) Additional Instructions: follow up appointment with dr ramesh 7-10 days Referrals: Aashish Sanchez MD [Staff Provider] - Guanaco Ramesh MD [Medical Doctor] -
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
== END 2017-02-15 18:55 | disposition home or self-care (01) | DRG 223 ==
LOC: H.ER 11:10 → H.ERHOLD 15:44 → H.MEDSURG1 17:50
PROVIDERS: ADMIT Internal Medicine Pulmonary Disease; ATTEND Internal Medicine Pulmonary Disease
PROC: 0PSL04Z Reposition Left Ulna with Internal Fixation Device, Open Approach (ICD-10-PCS; 2017-02-14)
PROC: 3E0T3BZ Introduction of Anesthetic Agent into Peripheral Nerves and Plexi, Percutaneous Approach (ICD-10-PCS; principal; 2017-02-14 10:45)
PROC: 0PSJ04Z Reposition Left Radius with Internal Fixation Device, Open Approach (ICD-10-PCS; 2017-02-14 10:45)
DX: S52.202A Unspecified fracture of shaft of left ulna, initial encounter for closed fracture (principal); J45.901 Unspecified asthma with (acute) exacerbation; S52.302A Unspecified fracture of shaft of left radius, initial encounter for closed fracture; Y04.8XXA Assault by other bodily force, initial encounter; F17.210 Nicotine dependence, cigarettes, uncomplicated; Z91.410 Personal history of adult physical and sexual abuse; Y07.03 Male partner, perpetrator of maltreatment and neglect

== ENCOUNTER 2017-04-30 13:29 | Emergency (ER) | payer OTHER ==
[2017-04-30 13:29] VITALS: BMI 21.6
[2017-04-30 14:04] VITALS: BP 115/68; PULSE 58; RESP 19; TEMP 97.9; O2SAT 98
--- NOTE | 2017-04-30 14:37 | ED PDOC ---
Upper Extremity Pain/Injury Time Seen by Provider: 04/30/17 14:25 Chief Complaint (Nursing): Upper Extremity Problem/Injury Chief Complaint (Provider): Left forearm pain and swelling History Per: Patient History/Exam Limitations: no limitations Onset/Duration Of Symptoms: Days (3) Current Symptoms Are (Timing): Still Present Additional Complaint(s): 36 y/o right hand dominant female presents to ER for evaluation of pain and swelling to her left forearm. Patient states she had surgery done on her left forearm for a fracture repair on 02/14/17 and had 2 metal plates placed by Dr. Adan. Patient states she did well after surgery and noticed pain and swelling as of a couple days ago. She denies any recent trauma or injury. Patient has been taking Motrin which has provided minimal relief of pain. Patient had outpatient x-rays done today and came to the ED for further evaluation. Past Medical History Reviewed: Historical Data, Nursing Documentation, Vital Signs Vital Signs: Last Vital Signs Temp 97.9 F 04/30/17 14:01 Pulse 58 L 04/30/17 14:01 Resp 19 04/30/17 14:01 BP 115/68 04/30/17 14:01 Pulse Ox 98 04/30/17 14:01 - Medical History PMH: Asthma - Surgical History Other surgeries: left forearm fracture repair - Family History Family History: States: Unknown Family Hx - Living Arrangements Living Arrangements: With Family - Social History Current smoker - smoking cessation education provided: Yes Alcohol: Occasional Drugs: Cannabis (occasional) - Immunization History Hx Tetanus Toxoid Vaccination: No Hx Influenza Vaccination: No Hx Pneumococcal Vaccination: No - Home Medications Home Medications: Ambulatory Orders Medication Instructions Recorded Ibuprofen [Advil] 2 tab PO PRN PRN 09/07/16 traMADol [Ultram] 50 mg PO Q6 PRN #20 tab 09/07/16 Methylprednisolone [Medrol Dose 4 mg PO ASDIR #21 mg 02/15/17 Pack (21 tabs)] oxyCODONE/Acetaminophen [Percocet 2 ea PO Q4H PRN #40 tab 02/15/17 5/325 mg Tab] Nabumetone [Relafen] 500 mg PO BID #20 tab 04/30/17 - Allergies Allergies/Adverse Reactions: Allergies Allergy/AdvReac Type Severity Reaction Status Date / Time fluconazole [From Diflucan] Allergy SWELLING Verified 02/10/17 12:58 Review of Systems ROS Statement: Except As Marked, All Systems Reviewed And Found Negative Musculoskeletal: Positive for: Arm Pain (left forearm pain and swelling) Physical Exam - Reviewed Nursing Documentation Reviewed: Yes Vital Signs Reviewed: Yes - Physical Exam Appears: Positive for: Non-toxic, No Acute Distress Head Exam: Positive for: ATRAUMATIC, NORMAL INSPECTION, NORMOCEPHALIC Skin: Positive for: Normal Color Pulses-Radial (L): 2+ Pulses-Radial (R): 2+ Extremity: Positive for: Normal ROM (Normal ROM at left wrist and elbow), Swelling (swelling noted to ulnar aspect of left forearm), Other (surgical scar noted to left medial forearm) Neurologic/Psych: Positive for: Alert, Oriented. Negative for: Motor/Sensory Deficits - Laboratory Results Urine POC: Negative - ECG O2 Sat by Pulse Oximetry: 98 (RA) Pulse Ox Interpretation: Normal - Other Rad X-ray left forearm X-Ray: Read By Radiologist X-Ray Interpretation: see below Medical Decision Making Medical Decision Making: Impression: 36 y/o female with left forearm pain and swelling Plan: -- UPreg -- Toradol 30mg IM X-ray: IMPRESSION: Disruption of the ulnar are hardware which is in stable position. Soft tissue swelling noted suggesting recent trauma. Major fracture fragments of the left ulna and radius unchanged. Patient was seen at bedside by Dr. Adan. He states no acute intervention is necessary at this time. He advised anti-inflammatory pain relievers and follow- up in his office 4 weeks. Scribe Attestation: Documented by Jeanne Reyez acting as a scribe for KEN Gray Provider Attestation: All medical record entries made by the Scribe were at my direction and personally dictated by me. I have reviewed the chart and agree that the record accurately reflects my personal performance of the history, physical exam, medical decision making, and the department course for this patient. I have also personally directed, reviewed, and agree with the discharge instructions and disposition. Disposition - Clinical Impression Clinical Impression: Forearm pain, Forearm fracture - Patient ED Disposition Is Patient to be Admitted: No Counseled Patient/Family Regarding: Studies Performed, Diagnosis, Need For Followup, Rx Given - Disposition Referrals: Guanaco Adan MD [Medical Doctor] - Disposition: Routine/Home Disposition Time: 16:07 Condition: STABLE Additional Instructions: Ice, rest and elevate affected area. Take rx meds as directed as needed for pain. Arrange follow-up appointment with Dr. Adan in office in 4 weeks. Prescriptions: Nabumetone [Relafen] 500 mg PO BID #20 tab Instructions: Forearm Fracture (DC) Forms: [employer] (Israeli)
== END 2017-04-30 16:18 | disposition home or self-care (01) ==
LOC: H.ER 13:29
DX: M79.632 Pain in left forearm (principal); J45.909 Unspecified asthma, uncomplicated; F17.200 Nicotine dependence, unspecified, uncomplicated
CPT/HCPCS: 81025; 96372; 99282; J1885

== ENCOUNTER 2017-07-31 13:50 | Emergency (ER) | payer OTHER ==
[2017-07-31 13:50] VITALS: BMI 21.6
[2017-07-31 13:58] VITALS: BP 120/77; PULSE 78; RESP 16; TEMP 98.7; O2SAT 100
--- NOTE | 2017-07-31 14:47 | ED PDOC ---
Upper Extremity Pain/Injury Time Seen by Provider: 07/31/17 14:15 Chief Complaint (Nursing): Upper Extremity Problem/Injury Chief Complaint (Provider): Left Arm Pain History Per: Patient History/Exam Limitations: no limitations Onset/Duration Of Symptoms: Days (3x) Current Symptoms Are (Timing): Still Present Additional Complaint(s): 37 year old right-hand dominant female presents to emergency room for evaluation of persistent left forearm pain. Patient had fracture repair to left forearm in January of 2017. Patient was then seen in ED in April of 2017 for forearm pain and was told that she has a disruption to ulnar hardware that was placed in left arm. Patient presents today with persistent pain and swelling to left forearm ongoing for several months. She states she needs revision surgery but cannot find an orthopedist who is willing to take the case. PMD: Peyton Hou Past Medical History Reviewed: Historical Data, Nursing Documentation, Vital Signs Vital Signs: Last Vital Signs Temp 98.7 F 07/31/17 13:55 Pulse 78 07/31/17 13:55 Resp 16 07/31/17 13:55 BP 120/77 07/31/17 13:55 Pulse Ox 100 07/31/17 13:55 - Medical History PMH: Asthma - Surgical History Other surgeries: Left forearm fracture repair - Family History Family History: States: No Known Family Hx - Living Arrangements Living Arrangements: With Family - Social History Current smoker - smoking cessation education provided: Yes Alcohol: Occasional Drugs: Denies - Home Medications Home Medications: Ambulatory Orders Medication Instructions Recorded Ibuprofen [Advil] 2 tab PO PRN PRN 09/07/16 traMADol [Ultram] 50 mg PO Q6 PRN #20 tab 09/07/16 Methylprednisolone [Medrol Dose 4 mg PO ASDIR #21 mg 02/15/17 Pack (21 tabs)] oxyCODONE/Acetaminophen [Percocet 2 ea PO Q4H PRN #40 tab 02/15/17 5/325 mg Tab] Nabumetone [Relafen] 500 mg PO BID #20 tab 04/30/17 - Allergies Allergies/Adverse Reactions: Allergies Allergy/AdvReac Type Severity Reaction Status Date / Time fluconazole [From Diflucan] Allergy SWELLING Verified 02/10/17 12:58 Review of Systems ROS Statement: Except As Marked, All Systems Reviewed And Found Negative Musculoskeletal: Positive for: Other (left forearm pain) Physical Exam - Reviewed Nursing Documentation Reviewed: Yes Vital Signs Reviewed: Yes - Physical Exam Appears: Positive for: Well, Non-toxic, No Acute Distress Head Exam: Positive for: ATRAUMATIC, NORMAL INSPECTION, NORMOCEPHALIC Skin: Positive for: Normal Color. Negative for: Rash Eye Exam: Positive for: Normal appearance Extremity: Positive for: Normal ROM (of left shoulder, elbow, wrist), Other ( Surgical scars noted to left forearm, swelling to ulnar aspect of left forearm without erythema or infection, strong left arm manager transfer ) Neurologic/Psych: Positive for: Alert, Oriented (x3) - Laboratory Results Urine POC: Negative (test was declined, patient is certain she is not ) - ECG O2 Sat by Pulse Oximetry: 100 (RA) Pulse Ox Interpretation: Normal - Other Rad Left forearm x-ray X-Ray: Viewed By Me, Read By Radiologist X-Ray Interpretation: see below Medical Decision Making Medical Decision Making: Time: 1426 Initial Impression: 37 year old female with left forearm pain Initial Plan: --Toradol 30mg --Forearm Left [RAD] X-ray: FINDINGS: BONES: The radial midshaft comminuted fracture lines are becoming more indistinct compatible with progressive intra osseous healing. Lateral plate and screws here intact. The disrupted ulnar lateral sideplate is renoted. Callus formation is noted. The fracture lines of this mid ulnar BRAXTON shaft fracture comminuted site is slightly increased in conspicuity may be slight increased radial bile pointing apical angulation of the ulnar disrupted side plate site since the prior exam or could even be projectional. Some partial callus formation healing is believe occurring here. However close continued follow-up is needed greater healing suggested at the radial side. JOINT SPACES: Unremarkable. OTHER FINDINGS: None. IMPRESSION: Fractures callus and disrupted ulnar side plate findings as detailed above. Patient is aware of above findings. Advised NSAID's for pain and ortho follow up SUSAN. Scribe Attestation: Documented by Holly Rubio, acting as a scribe for Samantha Conte PA-C Provider Scribe Attestation: All medical record entries made by the Scribe were at my direction and personally dictated by me. I have reviewed the chart and agree that the record accurately reflects my personal performance of the history, physical exam, medical decision making, and the department course for this patient. I have also personally directed, reviewed, and agree with the discharge instructions and disposition. Disposition - Clinical Impression Clinical Impression: Forearm pain - Patient ED Disposition Is Patient to be Admitted: No Counseled Patient/Family Regarding: Need For Followup - Disposition Referrals: Arben Barrios III, MD [Staff Provider] - Disposition: Routine/Home Disposition Time: 15:27 Condition: STABLE Additional Instructions: Ice, rest and elevate affected area. Take advil as needed for pain. Follow up with orthopedist SUSAN. Instructions: Muscle and Bone Pain (DC) Forms: [employer] (Cuban)
--- NOTE | 2017-07-31 15:12 | RAD ---
PROCEDURE: Radiographs of the Left Forearm HISTORY: pain COMPARISON: 06/05/2017. TECHNIQUE: Frontal and lateral views obtained. FINDINGS: BONES: The radial midshaft comminuted fracture lines are becoming more indistinct compatible with progressive intra osseous healing. Lateral plate and screws here intact. The disrupted ulnar lateral sideplate is renoted. Callus formation is noted. The fracture lines of this mid ulnar BRAXTON shaft fracture comminuted site is slightly increased in conspicuity may be slight increased radial bile pointing apical angulation of the ulnar disrupted side plate site since the prior exam or could even be projectional. Some partial callus formation healing is believe occurring here. However close continued follow-up is needed greater healing suggested at the radial side JOINT SPACES: Unremarkable. OTHER FINDINGS: None. IMPRESSION: Fractures callus and disrupted ulnar side plate findings as detailed above
== END 2017-07-31 15:46 | disposition home or self-care (01) ==
LOC: H.ER 13:50
DX: M79.632 Pain in left forearm (principal)
CPT/HCPCS: 73090; 96372; 99283; J1885

== ENCOUNTER 2017-08-26 07:25 | Emergency (ER) | payer OTHER ==
[2017-08-26 07:32] VITALS: BMI 24.5
[2017-08-26 07:33] VITALS: BP 119/80; PULSE 66; RESP 16; TEMP 98.2; O2SAT 99
--- NOTE | 2017-08-26 08:17 | ED PDOC ---
HPI: Eye Injury/Pain Time Seen by Provider: 08/26/17 07:30 Chief Complaint (Nursing): Eye Problem Chief Complaint (Provider): Eye Problem History Per: Patient History/Exam Limitations: no limitations Onset/Duration Of Symptoms: Days (1) Additional Complaint(s): 37 years old female presents to the ED for evaluation of left eye swelling with yellow thick purulent discharge onset last night. Patient reports having fake eyelashes a week ago. She states she woke up this morning with crusty residue. Patient reports experiencing sore throat. She denies any pain, foreign body sensation, fever, vomiting or diarrhea. PMD: Richard Villafuerte Past Medical History Reviewed: Historical Data, Nursing Documentation, Vital Signs Vital Signs: Last Vital Signs Temp 98.2 F 08/26/17 07:32 Pulse 66 08/26/17 07:32 Resp 16 08/26/17 07:32 BP 119/80 08/26/17 07:32 Pulse Ox 99 08/26/17 07:32 - Medical History PMH: Asthma Denies: HIV, Chronic Kidney Disease - Surgical History Other surgeries: Left forearm surgery - Family History Family History: States: Unknown Family Hx - Social History Current smoker - smoking cessation education provided: Yes (few cigarrets a day) Alcohol: Occasional Drugs: Denies - Immunization History Hx Tetanus Toxoid Vaccination: No Hx Influenza Vaccination: No Hx Pneumococcal Vaccination: No - Home Medications Home Medications: Ambulatory Orders Medication Instructions Recorded Ibuprofen [Advil] 2 tab PO PRN PRN 09/07/16 traMADol [Ultram] 50 mg PO Q6 PRN #20 tab 09/07/16 Methylprednisolone [Medrol Dose 4 mg PO ASDIR #21 mg 02/15/17 Pack (21 tabs)] oxyCODONE/Acetaminophen [Percocet 2 ea PO Q4H PRN #40 tab 02/15/17 5/325 mg Tab] Nabumetone [Relafen] 500 mg PO BID #20 tab 04/30/17 Tobramycin 0.3% [Tobrex 0.3% Ophth 1 drop OS QID #1 bottle 08/26/17 Soln] - Allergies Allergies/Adverse Reactions: Allergies Allergy/AdvReac Type Severity Reaction Status Date / Time fluconazole [From Diflucan] Allergy SWELLING Verified 02/10/17 12:58 Review of Systems ROS Statement: Except As Marked, All Systems Reviewed And Found Negative Constitutional: Negative for: Fever Eyes: Positive for: Conjunctivae Inflammation (left eye), Other (swelling with yellow thick discharge of left eye). Negative for: Pain, Vision Change Gastrointestinal: Negative for: Vomiting, Diarrhea Physical Exam - Reviewed Nursing Documentation Reviewed: Yes Vital Signs Reviewed: Yes - Physical Exam Appears: Positive for: Non-toxic, No Acute Distress Head Exam: Positive for: ATRAUMATIC Eye Exam: Positive for: Conjunctival injection (Left), Other (Erythema to left eye. Slight crust of purulent discharge) ENT: Positive for: Normal ENT Inspection Neurologic/Psych: Positive for: Alert, Oriented - ECG O2 Sat by Pulse Oximetry: 99 (RA) Pulse Ox Interpretation: Normal Medical Decision Making Medical Decision Making: Time: 810 Initial Impression: Bacterial conjunctivitis, rule out strep Initial Plan: --Rapid Strep Group A Antigen Time: 1028 Strep results reviewed and within normal limits. Patient is stable for discharge w diagnosis of conjunctivitis and rx for tobramycin. ----- Scribe Attestation: Documented by Danna Keating, acting as a scribe for Kay Morrissey MD. Provider Scribe Attestation: All medical record entries made by the Scribe were at my direction and personally dictated by me. I have reviewed the chart and agree that the record accurately reflects my personal performance of the history, physical exam, medical decision making, and the department course for this patient. I have also personally directed, reviewed, and agree with the discharge instructions and disposition. Disposition - Clinical Impression Clinical Impression: Conjunctivitis - Patient ED Disposition Is Patient to be Admitted: No Counseled Patient/Family Regarding: Studies Performed, Diagnosis, Need For Followup - Disposition Disposition: Routine/Home Disposition Time: 10:00 Condition: IMPROVED Additional Instructions: take eye drops for pink eye and follow up with your doctor to make sure resolves within one week get fake eyelashes removed return to the ED with any worsening or concerning symptoms Prescriptions: Tobramycin 0.3% [Tobrex 0.3% Ophth Soln] 1 drop OS QID #1 bottle Instructions: Conjunctivitis ([place]) (DC) Forms: [email or web address] (Occitan)
== END 2017-08-26 10:39 | disposition home or self-care (01) ==
LOC: H.ER 07:25
DX: H10.89 Other conjunctivitis (principal)

== ENCOUNTER 2017-09-16 22:19 | Emergency (ER) | payer OTHER ==
[2017-09-16 22:20] VITALS: BMI 24.5
[2017-09-16] MEDS ORDERED: Sodium Chloride 0.9% 1,000 ML IV STA (22:45)
[2017-09-16] MEDS ORDERED: cefTRIAXone (Rocephin) 1 gm Inj ONE (23:03)
--- NOTE | 2017-09-16 23:17 | ED PDOC ---
HPI: Female Pain Time Seen by Provider: 09/16/17 22:32 Chief Complaint (Nursing): Female Genitourinary Chief Complaint (Provider): Female Genitourinary History Per: Patient History/Exam Limitations: no limitations Onset/Duration Of Symptoms: Days (x 3) Current Symptoms Are (Timing): Still Present Quality Of Discomfort: "Pain" Associated Symptoms: Fever, Chills, Nausea, Vomiting, Back Pain, Urinary Symptoms Additional Complaint(s): 37 year old female presents to the ED with flank pain, fever and dysuria for the last 3 days. Symptoms are associated with fever, chills, urinary frequency and one episode of nausea and vomiting. Patient reports back pain is worse on her left side than her right. She has been taking over the counter Azo with no relief. Offers no other medical complaints. PMD: Dr. Cortez Villafuerte Past Medical History Reviewed: Historical Data, Nursing Documentation, Vital Signs Vital Signs: Last Vital Signs Temp 100.8 F H 09/16/17 22:22 Pulse 93 H 09/16/17 22:22 Resp 16 09/16/17 22:22 BP 127/78 09/16/17 22:22 Pulse Ox 96 09/16/17 22:22 - Medical History PMH: Asthma Denies: HIV, Chronic Kidney Disease - Surgical History Other surgeries: left forearm fracture repair - Family History Family History: States: Unknown Family Hx - Social History Current smoker - smoking cessation education provided: Yes - Immunization History Hx Tetanus Toxoid Vaccination: No Hx Influenza Vaccination: No Hx Pneumococcal Vaccination: No - Home Medications Home Medications: Ambulatory Orders Medication Instructions Recorded Ibuprofen [Advil] 2 tab PO PRN PRN 09/07/16 traMADol [Ultram] 50 mg PO Q6 PRN #20 tab 09/07/16 Methylprednisolone [Medrol Dose 4 mg PO ASDIR #21 mg 02/15/17 Pack (21 tabs)] oxyCODONE/Acetaminophen [Percocet 2 ea PO Q4H PRN #40 tab 02/15/17 5/325 mg Tab] Nabumetone [Relafen] 500 mg PO BID #20 tab 04/30/17 Tobramycin 0.3% [Tobrex 0.3% Ophth 1 drop OS QID #1 bottle 08/26/17 Soln] Ciprofloxacin [Cipro] 500 mg PO Q12 #20 tab 09/17/17 - Allergies Allergies/Adverse Reactions: Allergies Allergy/AdvReac Type Severity Reaction Status Date / Time fluconazole [From Diflucan] Allergy SWELLING Verified 02/10/17 12:58 Review of Systems ROS Statement: Except As Marked, All Systems Reviewed And Found Negative Constitutional: Positive for: Fever, Chills Gastrointestinal: Positive for: Nausea, Vomiting (1 episode ) Genitourinary Female: Positive for: Dysuria, Frequency Musculoskeletal: Positive for: Back Pain (worse on left than right side ) Physical Exam - Reviewed Nursing Documentation Reviewed: Yes Vital Signs Reviewed: Yes - Physical Exam Appears: Positive for: Non-toxic, No Acute Distress (febrile at 100.8) Head Exam: Positive for: ATRAUMATIC, NORMAL INSPECTION, NORMOCEPHALIC Skin: Positive for: Normal Color, Warm, Dry Eye Exam: Positive for: EOMI, Normal appearance, PERRL Neck: Positive for: Normal, Painless ROM, Supple Cardiovascular/Chest: Positive for: Regular Rate, Rhythm. Negative for: Murmur Respiratory: Positive for: Normal Breath Sounds. Negative for: Respiratory Distress Gastrointestinal/Abdominal: Positive for: Soft, Tenderness (suprapubic tenderness). Negative for: Mass, Guarding Back: Positive for: L CVA Tenderness (left side worse than right ), R CVA Tenderness Extremity: Positive for: Normal ROM. Negative for: Deformity Neurologic/Psych: Positive for: Alert, Oriented (x 3). Negative for: Motor/ Sensory Deficits - Laboratory Results Result Diagrams: 09/16/17 23:10 09/16/17 23:10 - ECG O2 Sat by Pulse Oximetry: 96 (RA) Pulse Ox Interpretation: Normal Medical Decision Making Medical Decision Makin:41 Impression: 37 year old female presenting with clinical symptoms of pyelonephritis Initial Plan: --labs --NS IV --Rocephin 100 ml IVPB --Toradol 30 mg IV --Zofran 4 mg IV --Renal US 23:51 Renal US FINDINGS: Right kidney: Unremarkable. No stones. No solid mass. No hydronephrosis. The RIGHT kidney measures 10.8 cm x 4.6 cm x 4 cm Left kidney: Complex cyst upper pole 4.3 cm x 4.3 cm x 3.4 cm No stones. No solid mass. No hydronephrosis. LEFT kidney measures 11.7 cm x 3.7 cm x 4.4 cm Urinary bladder is unremarkable IMPRESSION: 1. Complex cyst upper pole LEFT kidney. 2. Negative RIGHT kidney 3. Unremarkable urinary bladder Time: 01:09 --Patient reports improvement of symptoms and is stable for discharge. Diagnosis is pyelonephritis. Return precautions were provided as well as a prescription for Cipro. ---- Scribe Attestation: Documented by Lidya Jolly, acting as a scribe for Sascha Drake MD Provider Scribe Attestation: All medical record entries made by the Scribe were at my direction and personally dictated by me. I have reviewed the chart and agree that the record accurately reflects my personal performance of the history, physical exam, medical decision making, and the department course for this patient. I have also personally directed, reviewed, and agree with the discharge instructions and disposition. Disposition - Clinical Impression Clinical Impression: Pyelonephritis - Patient ED Disposition Is Patient to be Admitted: No - Disposition Disposition: Routine/Home Disposition Time: 01:09 Condition: STABLE Additional Instructions: MARISOL BURROUGHS, thank you for letting us take care of you today. Your provider was Sascha Drake MD and you were treated for FEVER, VOMITING. The emergency medical care you received today was directed at your acute symptoms. If you were prescribed any medication, please fill it and take as directed. It may take several days for your symptoms to resolve. Return to the Emergency Department if your symptoms worsen, do not improve, or if you have any other problems. Please contact your doctor or call one of the physicians/clinics you have been referred to that are listed on the Patient Visit Information form that is included in your discharge packet. Bring any paperwork you were given at discharge with you along with any medications you are taking to your follow up visit. Our treatment cannot replace ongoing medical care by a primary care provider outside of the emergency department. Thank you for allowing the [facility] team to be part of your care today. If you had an X-Ray or CT scan: A Radiologist will review the ED reading if any change in treatment is needed we will contact you. If you had a blood, urine, or wound culture: It will take several days for the results, if any change in treatment is needed we will contact you. If you had an STI test: It will take 48 hours for the results. Please call after 1 week if you have not heard back. Prescriptions: Ciprofloxacin [Cipro] 500 mg PO Q12 #20 tab Instructions: Kidney Infection Forms: [facility] (Ukrainian)
[2017-09-16 23:34] LABS: BASO # 0.1 K/uL (0.0-0.2); BASO % 0.6 % (0.0-2.0); EOS # 0.2 K/uL (0.0-0.7); EOS % 1.3 % (0.0-4.0); HEMOGLOBIN 12.2 g/dL (12.0-16.0); LYMPH # 1.5 K/uL (1.0-4.3); MEAN CELL VOLUME 91.1 fl (81.0-99.0); MEAN CORPUSCULAR HEMOGLOBIN 29.9 pg (27.0-31.0); MEAN CORPUSCULAR HGB CONC 32.9 g/dL (33.0-37.0); MONO % 7.1 % (0.0-10.0); NEUT # 11.3 K/uL (1.8-7.0); RBC 4.08 Mil/uL (3.80-5.20); RED CELL DISTRIBUTION WIDTH 14.3 % (11.5-14.5); WHITE BLOOD COUNT 14.1 K/uL (4.8-10.8)
[2017-09-16 23:42] LABS: SQUAMOUS EPITHIAL 1 /hpf (0-5); URINE BILIRUBIN NEGATIVE (NEGATIVE); URINE BLOOD NEGATIVE (NEGATIVE); URINE GLUCOSE (UA) NEG (Normal); URINE LEUKOCYTE ESTERASE SMALL Leu/uL (Negative); URINE PROTEIN 30 mg/dL (NEGATIVE); URINE UROBILINOGEN 0.2-1.0 mg/dL (0.2-1.0)
[2017-09-16 23:43] LABS: ALB/GLOB RATIO 1.4 (1.0-2.1); ALBUMIN 4.3 g/dL (3.5-5.0); ALT/SGPT 22 U/L (9-52); AST/SGOT 24 U/L (14-36); BLOOD UREA NITROGEN 8 mg/dl (7-17); CALCIUM 9.5 mg/dL (8.4-10.2); GFR AFRICAN-AMERICAN > 60; GFR NON-AFRICAN AMERICAN > 60
[2017-09-16 23:53] LABS: URINE CLARITY CLEAR (Clear); URINE COLOR YELLOW (YELLOW)
[2017-09-17 01:46] VITALS: BP 114/76; PULSE 84; RESP 18; TEMP 99.2; O2SAT 98
--- NOTE | 2017-09-17 10:35 | US ---
Date of service: 09/16/2017 PROCEDURE: Ultrasound of the Kidneys HISTORY: flank pain COMPARISON: None available. TECHNIQUE: Sonogram of the kidneys. FINDINGS: RIGHT KIDNEY: Measures: 4.6 x 10.8 cm. Normal in size, contour and echogenicity. No stone, solid mass lesion or hydronephrosis visualized. LEFT KIDNEY: Measures: 3.7 x 11.7 cm. Normal in size, contour and echogenicity. No stone, solid mass lesion or hydronephrosis visualized. Cyst, upper pole 4.3 x 4.4 cm contains debris. No solid component noted. 1st OTHER FINDINGS: None. IMPRESSION: No acute findings related to/accounting for the clinical presentation. Complex cyst left kidney. Concordant results (preliminary interpretation) provided by [facility]. Procedure Completed: 22:55 Preliminary ([facility]) Report: Dictated and Authenticated: 23:51 Final Interpretation: 11/1930 08:00 September 17, 2017.
--- NOTE | 2017-09-17 12:31 | CARD ---
APPROVED REPORT Date of service: 09/16/2017 EKG Measurement Heart [id number] <Conclusion> Normal sinus rhythm Possible Left atrial enlargement Nonspecific T wave abnormality Abnormal ECG
== END 2017-09-17 01:44 | disposition home or self-care (01) ==
LOC: H.ER 22:19
DX: N12 Tubulo-interstitial nephritis, not specified as acute or chronic (principal)
CPT/HCPCS: 76770; 80053; 81003; 81025; 83605; 85025; 87040; 93005; 96365; 96375; 99283; J0696; J1885; J7030

== ENCOUNTER 2018-02-11 18:34 | Emergency (ER) | payer MEDICAID, OTHER ==
[2018-02-11] MEDS ORDERED: Oxycodone/Acetaminophen 5/325 mg Tab PO STA (20:20)
[2018-02-11] MEDS ORDERED: Tmp-Smz 800 mg-160 mg DS Tab PO STA (20:20)
[2018-02-11] MEDS ORDERED: Lidocaine 2% w Epi 1:100,000 Inj IJ STA (20:23)
[2018-02-11] MEDS ORDERED: Tmp-Smz 800 mg-160 mg DS Tab ONE (20:30)
[2018-02-11] MEDS ORDERED: Lidocaine 2% w Epi 1:100,000 Inj IJ ONE (20:31)
[2018-02-11] MEDS ORDERED: Oxycodone/Acetaminophen 5/325 mg Tab ONE (20:31)
--- NOTE | 2018-02-11 21:13 | ED PDOC ---
HPI: Wound Care - HPI Time Seen by Provider: 02/11/18 20:10 Chief Complaint (Nursing): Abnormal Skin Integrity Chief Complaint (Provider): abscess, right groin History Per: Patient History Of Present Illness: 4 days enlarging redness and "bump" to the right groin. Pt states it started with the appearance of an insect bite. Pt denies fever, chills, but states there was a small amount of drainage earlier today. No previous incident of abscess, cellulitis, or MRSA. Exam Limitations: no limitations Onset/Duration Of Symptoms: Days Current Symptoms Are (Timing): Still Present Location Of Injury: Right: Leg (right groin) Quality Of Symptoms: Painful, Swollen, Draining Severity: Moderate Pain Scale Rating Of: 7 Past Medical History Vital Signs: Last Vital Signs Temp 99.6 F 02/11/18 19:03 Pulse 77 02/11/18 19:03 Resp 16 02/11/18 19:03 BP 124/80 02/11/18 19:03 Pulse Ox 99 02/11/18 19:03 - Medical History PMH: Asthma Denies: HIV, Chronic Kidney Disease - Family History Family History: States: Unknown Family Hx - Immunization History Hx Tetanus Toxoid Vaccination: No Hx Influenza Vaccination: No Hx Pneumococcal Vaccination: No - Home Medications Home Medications: Ambulatory Orders Medication Instructions Recorded Ibuprofen [Advil] 2 tab PO PRN PRN 09/07/16 traMADol [Ultram] 50 mg PO Q6 PRN #20 tab 09/07/16 Methylprednisolone [Medrol Dose 4 mg PO ASDIR #21 mg 02/15/17 Pack (21 tabs)] oxyCODONE/Acetaminophen [Percocet 2 ea PO Q4H PRN #40 tab 02/15/17 5/325 mg Tab] Nabumetone [Relafen] 500 mg PO BID #20 tab 04/30/17 Tobramycin 0.3% [Tobrex 0.3% Ophth 1 drop OS QID #1 bottle 08/26/17 Soln] Ciprofloxacin [Cipro] 500 mg PO Q12 #20 tab 09/17/17 - Allergies Allergies/Adverse Reactions: Allergies Allergy/AdvReac Type Severity Reaction Status Date / Time fluconazole [From Diflucan] Allergy SWELLING Verified 02/11/18 19:10 Review of Systems Constitutional: Negative for: Fever, Chills, Weakness, Malaise Cardiovascular: Negative for: Chest Pain, Palpitations Respiratory: Negative for: Cough, Shortness of Breath, SOB with Exertion, Wheezing Gastrointestinal: Negative for: Nausea, Vomiting, Abdominal Pain, Diarrhea Genitourinary Female: Negative for: Dysuria Musculoskeletal: Negative for: Neck Pain, Back Pain, Leg Pain Skin: Positive for: Other (see HPI) Neurological: Negative for: Weakness, Numbness Physical Exam - Reviewed Vital Signs Reviewed: Yes - Physical Exam Appears: Positive for: Well, Non-toxic, No Acute Distress Head Exam: Positive for: ATRAUMATIC, NORMAL INSPECTION, NORMOCEPHALIC Skin: Positive for: Normal Color, Warm, Rash (abscess with center draining 6 cm x 2.5cm with center drainage. TTP) Cardiovascular/Chest: Positive for: Regular Rate, Rhythm Respiratory: Positive for: Normal Breath Sounds Pulses-Dorsalis Pedis (L): 2+ Pulses-Dorsalis Pedis (R): 2+ Pulses-Femoral (L): 2+ Pulses-Femoral (R): 2+ Gastrointestinal/Abdominal: Positive for: Normal Exam, Soft. Negative for: Tenderness Neurologic/Psych: Positive for: Alert, guest service aide II-XII, Oriented. Negative for: Motor/Sensory Deficits - ECG O2 Sat by Pulse Oximetry: 99 Medical Decision Making Medical Decision Making: Pt presents with abscess to right groin. Surgery was consulted and surgery incised and drained the abscess reportedly draining 5 cc. Pt received percocet and Bactrim prior to procedure. Pt to return in two days for packing removal. Rx for Bactrim and Percocet. Return parameters discussed. Disposition - Clinical Impression Clinical Impression: Abscess - Patient ED Disposition Is Patient to be Admitted: No - Disposition Disposition: Routine/Home Disposition Time: 21:19 Condition: IMPROVED Instructions: Abscess Drainage, Percutaneous (DC)
--- NOTE | 2018-02-11 21:14 | CP.PCM.CON ---
History of Present Illness - History of Present Illness History of Present Illness: Gen Surg: Dr Butts Ms. Humphreys is a 37F with no significant PMH who presents to ED with right groin abscess x 2 days. Pt reports started as a small pimple and has gradually increased in size and become more "red and painful". Denies any previous abscesses. Denies recent shaving to area. Reports having felt feverish. Denies n/v, f/c, sob or chest pain. Given location of abscess and US was performed at bedside prior to I&D to ensure it was an abscess and not any vascular structure or hernia defect. Abscess size and contents confirmed via US. PMH: none PSH: left radial/ulna fracture All: fluconazole I&D performed at bedside, see below PROCEDURE NOTE Informed consent signed and obtained. Risks/benefits explained to pt. Area cleansed with chlorhexidine, prepped and drapped in sterile fashion 5cc of 1% lidocaine w/ epinephrine used as local anesthetic Cruciate incision made using 11 blade. Abscess probed and loculations broken up, all puss expressed, cultures obtained Packed with 1/2" iodoform packing. Hemostasis achieved. Sterile dressing applied. Pt given post-op care instructions verbally Tolerated procedure well. Will be discharged on Bactrim per ED attending. F/U in 48 hours for packing removal. Case was d/w Dr Benjamín Marvin, PGY4 Review of Systems - Review of Systems All systems: reviewed and no additional remarkable complaints except (as per hpi) Past Patient History - Infectious Disease Hx of Infectious Diseases: None - Past Social History Smoking Status: Light Smoker < 10 Cigarettes Daily - CARDIAC Hx Cardiac Disorders: No - PULMONARY Hx Asthma: Yes - NEUROLOGICAL Hx Neurological Disorder: No - HEENT Hx HEENT Problems: Yes Other/Comment: Allergic Rhinitis - RENAL Hx Chronic Kidney Disease: No - ENDOCRINE/METABOLIC Hx Endocrine Disorders: No - HEMATOLOGICAL/ONCOLOGICAL Hx Human Immunodeficiency Virus (HIV): No - INTEGUMENTARY Hx Dermatological Problems: No - MUSCULOSKELETAL/RHEUMATOLOGICAL Hx Falls: No - GASTROINTESTINAL Hx Gastrointestinal Disorders: No - GENITOURINARY/GYNECOLOGICAL Hx Genitourinary Disorders: No - PSYCHIATRIC Hx Psychophysiologic Disorder: No Hx Substance Use: Yes (uses marijuana daily) - SURGICAL HISTORY Hx Surgeries: Yes Other/Comment: Fx L great toe ( close reduction ). left arm surgey - ANESTHESIA Hx Anesthesia: Yes Meds Allergies/Adverse Reactions: Allergies Allergy/AdvReac Type Severity Reaction Status Date / Time fluconazole [From Diflucan] Allergy SWELLING Verified 02/11/18 19:10 Physical Exam - Constitutional Appears: Non-toxic, No Acute Distress - Head Exam Head Exam: NORMOCEPHALIC - Eye Exam Eye Exam: Normal appearance - Respiratory Exam Respiratory Exam: absent: Respiratory Distress - Cardiovascular Exam Cardiovascular Exam: REGULAR RHYTHM - GI/Abdominal Exam GI & Abdominal Exam: Soft. absent: Distended, Firm, Tenderness - Exam Additional comments: 2x3 cm abscess in right inguinal crease - erythematous, indurated, central fluctuance, has begun to drain spontaneously Results - Vital Signs Recent Vital Signs: Last Vital Signs Temp 99.6 F 02/11/18 19:03 Pulse 77 02/11/18 19:03 Resp 16 02/11/18 19:03 BP 124/80 02/11/18 19:03 Pulse Ox 99 02/11/18 19:03 Assessment & Plan - Assessment and Plan (Free Text) Assessment: 37F with inguinal abscess
[2018-02-11 21:21] LABS: BASO # 0.1 K/uL (0.0-0.2); BASO % 0.6 % (0.0-2.0); EOS # 0.1 K/uL (0.0-0.7); EOS % 0.6 % (0.0-4.0); HEMOGLOBIN 12.5 g/dL (12.0-16.0); LYMPH # 3.1 K/uL (1.0-4.3); LYMPH % 19.7 % (20.0-40.0); MEAN CELL VOLUME 91.2 fl (81.0-99.0); MEAN CORPUSCULAR HEMOGLOBIN 30.3 pg (27.0-31.0); MEAN CORPUSCULAR HGB CONC 33.2 g/dL (33.0-37.0); MEAN PLATELET VOLUME 8.2 fl (7.2-11.7); MONO # 1.2 K/uL (0.0-0.8); MONO % 7.5 % (0.0-10.0); NEUT # 11.1 K/uL (1.8-7.0); NEUT % 71.6 % (50.0-75.0); NRBC % 0.1 % (0.0-0.0); RBC 4.14 Mil/uL (3.80-5.20); RED CELL DISTRIBUTION WIDTH 14.6 % (11.5-14.5); WHITE BLOOD COUNT 15.5 K/uL (4.8-10.8)
[2018-02-11 21:32] LABS: BLOOD UREA NITROGEN 10 mg/dl (7-17); CALCIUM 9.2 mg/dL (8.4-10.2); GFR NON-AFRICAN AMERICAN > 60
[2018-02-11 21:35] VITALS: BP 110/70; PULSE 71; RESP 18; TEMP 98.2; O2SAT 100
== END 2018-02-11 21:42 | disposition home or self-care (01) ==
LOC: H.ER 18:34
DX: L02.214 Cutaneous abscess of groin (principal)

== ENCOUNTER 2018-02-13 20:19 | Emergency (ER) | payer MEDICAID ==
[2018-02-13 20:42] VITALS: BP 121/55; PULSE 89; RESP 16; TEMP 99.2; O2SAT 97
[2018-02-13] MEDS ORDERED: Tdap Vaccine 0.5 ml Vial (10-64 yrs) IM ONE ×2 (22:04→23:00)
[2018-02-13] MEDS ORDERED: Bacitracin 500 Units/gm Oint Foilpak UD TOP STA (22:04)
--- NOTE | 2018-02-13 22:04 | ED PDOC ---
HPI: Wound Care - HPI Time Seen by Provider: 02/13/18 21:57 Chief Complaint (Nursing): Wound Check Chief Complaint (Provider): Wound Check History Per: Patient Exam Limitations: no limitations Onset/Duration Of Symptoms: Days Current Symptoms Are (Timing): Still Present Quality Of Symptoms: Painful Additional Complaint(s): 37 y/o female with no significant PMHx presents to the ED for wound evaluation s/p I&D. Patient reports of having an I&D performed to the right hip/groin two days ago. Patient states packing needs to be removed at this time. Patient is expressing concern due to wound being painful and still draining. Patient reports of taking Percocet at 9 AM this morning and Aleve at 4:30 PM today. Patient has been compliant with prescribed antibiotics. Denies fever/chills. No other complaints. PMD: Richard Villafuerte Tetanus vaccination: not up to date. Past Medical History Reviewed: Historical Data, Nursing Documentation, Vital Signs Vital Signs: Last Vital Signs Temp 99.2 F 02/13/18 20:40 Pulse 89 02/13/18 20:40 Resp 16 02/13/18 20:40 BP 121/55 L 02/13/18 20:40 Pulse Ox 97 02/13/18 20:40 - Medical History PMH: Asthma - Surgical History Surgical History: No Surg Hx - Family History Family History: States: Unknown Family Hx - Home Medications Home Medications: Ambulatory Orders Medication Instructions Recorded RX: Ibuprofen [Advil] 2 tab PO PRN PRN 09/07/16 RX: traMADol [Ultram] 50 mg PO Q6 PRN #20 tab 09/07/16 Methylprednisolone [Medrol Dose 4 mg PO ASDIR #21 mg 02/15/17 Pack (21 tabs)] oxyCODONE/Acetaminophen [Percocet 2 ea PO Q4H PRN #40 tab 02/15/17 5/325 mg Tab] Nabumetone [Relafen] 500 mg PO BID #20 tab 04/30/17 RX: Tobramycin 0.3% [Tobrex 0.3% 1 drop OS QID #1 bottle 08/26/17 Ophth Soln] Ciprofloxacin [Cipro] 500 mg PO Q12 #20 tab 09/17/17 Sulfamethoxazole/Trimethoprim 1 tab PO BID #20 tab 02/11/18 [Bactrim DS 800 mg-160 mg] oxyCODONE/Acetaminophen [Percocet 1 ea PO Q6 #8 tab 02/11/18 5/325 mg Tab] RX: Ibuprofen [Motrin Tab] 600 mg PO Q6 PRN #20 tab 02/13/18 - Allergies Allergies/Adverse Reactions: Allergies Allergy/AdvReac Type Severity Reaction Status Date / Time fluconazole [From Diflucan] Allergy SWELLING Verified 02/11/18 19:10 Review of Systems ROS Statement: Except As Marked, All Systems Reviewed And Found Negative Skin: Positive for: Other (Wound care) Physical Exam - Reviewed Nursing Documentation Reviewed: Yes Vital Signs Reviewed: Yes - Physical Exam Comments: GENERAL APPEARANCE: Patient is awake, alert, oriented x 3, resting comfortably, in no acute distress. Neck: Supple ENT: Mucus membranes moist. Airway patent, (-) stridor. Skin: (+) 1 cm incision with packing in place noted to the right inguinal groin fold (+) erythema (-) warmth, (+) pus drainage. No evidence of surrounding c ellulitis. Pulmonary: lungs clear to auscultation bilaterally, no rhonchi, no wheezing, no rales. Cardiac: regular rate and rhythm Neuro: Mental status as above. Gait: steady. Speech: clear. (-) facial asymmetry - Laboratory Results Urine POC: Negative - ECG O2 Sat by Pulse Oximetry: 97 (RA) Pulse Ox Interpretation: Normal Medical Decision Making Medical Decision Making: Time: 2204 Impression: Wound check s/p I&D. Plan: -- Adacel (10-64 yrs) 0.5 mL IM -- Toradol 30 mg IM -- Packing removed in its entirety by Rodo SHAIKH Bacitracin and dressing applied. Patient educated on wound care. 2309 On re-evaluation, patient reports improvement of symptoms. On exam, patient remains AAOx3, in no acute distress. Vitals stable. Lab/Diagnostic results d/w the patient in great detail. Diagnosis of wound check s/p I&D d/w the patient. Based on history, exam and diagnostic results, plan will be for outpatient follow up. Patient instructed to follow-up with pmd / referral provided / the clinic in 1- 2 days without fail. Advised to take medication as prescribed. Return to the emergency room at any time for any new or worsening symptoms. Patient states she fully agrees with and understands discharge instructions. States that she agrees with the plan and disposition. Verbalized and repeated discharge instructions and plan. I have given the patient opportunity to ask any additional questions. Scribe Attestation: Documented by Cailin Mustafa, acting as a scribe for Izabella Koehler PA-C. Provider Scribe Attestation: All medical record entries made by the Scribe were at my direction and personally dictated by me. I have reviewed the chart and agree that the record accurately reflects my personal performance of the history, physical exam, medical decision making, and the department course for this patient. I have also personally directed, reviewed, and agree with the discharge instructions and disposition. Disposition - Clinical Impression Clinical Impression: Visit for wound check, Abscess packing removal - Patient ED Disposition Is Patient to be Admitted: No Counseled Patient/Family Regarding: Studies Performed, Diagnosis, Need For Followup, Rx Given - Disposition Referrals: Richard Villafuerte DO [Family Provider] - Disposition: Routine/Home Disposition Time: 23:15 Condition: STABLE Additional Instructions: Continue antibiotics from prior visit. Change wound bandage twice daily. The emergency medical care you received today was directed at your acute symptoms. If you were prescribed any medication, please fill it and take as directed. It may take several days for your symptoms to resolve. Return to the Emergency Department if your symptoms worsen, do not improve, or if you have any other problems. Please contact your doctor in 2 days for re-evaluation and follow up / or call one of the physicians/clinics you have been referred to that are listed on the Patient Visit Information form that is included in your discharge packet. Bring any paperwork you were given at discharge with you along with any medications you are taking to your follow up visit. Our treatment cannot replace ongoing medical care by a primary care provider (PCP) outside of the emergency department. Prescriptions: RX: Ibuprofen [Motrin Tab] 600 mg PO Q6 PRN #20 tab PRN Reason: Pain, Moderate (4-7) Instructions: Abscess Incision and Drainage, Wound Care Forms: [facility] (Wolof) Print Language: MONGOLIAN - POA Present On Arrival: None
[2018-02-13] MEDS ORDERED: Naproxen 500 MG TAB PO ONE (22:56)
== END 2018-02-13 23:41 | disposition home or self-care (01) ==
LOC: H.ER 20:19
DX: Z48.00 Encounter for change or removal of nonsurgical wound dressing (principal)
CPT/HCPCS: 81025; 96372; 99282; J1885

== ENCOUNTER 2018-04-03 19:37 | Emergency (ER) | payer MEDICAID ==
[2018-04-03 21:02] VITALS: BP 110/62; PULSE 76; RESP 16; TEMP 98.6; O2SAT 97
[2018-04-03] MEDS ORDERED: Albuterol-Ipratrop 3 mg / 0.5 (3 ml) UD IH STA (21:45)
--- NOTE | 2018-04-03 21:49 | ED PDOC ---
HPI: CCC, URI, Sore Throat Time Seen by Provider: 04/03/18 21:34 Chief Complaint (Nursing): Flu-like Symptoms Chief Complaint (Provider): cough, congestion History Per: Patient History/Exam Limitations: no limitations Onset/Duration Of Symptoms: Days (4) Current Symptoms Are (Timing): Still Present Associated Symptoms: Fever, Chills, Cough, Sputum, Nasal Congestion Additional Complaint(s): 37 y/o female presents for evaluation of cough and congestion x 4 days. Patient reports subjective fevers, nasal congestion, productive cough with chest tightness. Has been taking dayquil for symptoms for little improvement. Patient also reports pain to right axilla area and notices veins there to be swollen intermittently for one week. Denies nausea/vomiting, shortness of breath, palpitations, nausea/vomiting, abdominal pain, changes in bowel m ovements, urinary symptoms, recent travel, sick contacts. Past Medical History Reviewed: Historical Data, Nursing Documentation, Vital Signs Vital Signs: Last Vital Signs Temp 98.6 F 04/03/18 21:04 Pulse 76 04/03/18 21:01 Resp 16 04/03/18 21:01 BP 110/62 04/03/18 21:01 Pulse Ox 97 04/03/18 21:01 - Medical History PMH: Asthma Denies: HIV, Chronic Kidney Disease - Family History Family History: States: Unknown Family Hx - Living Arrangements Living Arrangements: With Family - Immunization History Hx Tetanus Toxoid Vaccination: No Hx Influenza Vaccination: No Hx Pneumococcal Vaccination: No - Home Medications Home Medications: Ambulatory Orders Medication Instructions Recorded Ibuprofen [Advil] 2 tab PO PRN PRN 09/07/16 traMADol [Ultram] 50 mg PO Q6 PRN #20 tab 09/07/16 Methylprednisolone [Medrol Dose 4 mg PO ASDIR #21 mg 02/15/17 Pack (21 tabs)] oxyCODONE/Acetaminophen [Percocet 2 ea PO Q4H PRN #40 tab 02/15/17 5/325 mg Tab] Nabumetone [Relafen] 500 mg PO BID #20 tab 04/30/17 Tobramycin 0.3% [Tobrex 0.3% Ophth 1 drop OS QID #1 bottle 08/26/17 Soln] Ciprofloxacin [Cipro] 500 mg PO Q12 #20 tab 09/17/17 Sulfamethoxazole/Trimethoprim 1 tab PO BID #20 tab 02/11/18 [Bactrim DS 800 mg-160 mg] oxyCODONE/Acetaminophen [Percocet 1 ea PO Q6 #8 tab 02/11/18 5/325 mg Tab] Ibuprofen [Motrin Tab] 600 mg PO Q6 PRN #20 tab 02/13/18 Albuterol HFA [Ventolin HFA 90 1 puff IH Q4 PRN #1 inh 04/04/18 mcg/actuation (8 g)] Fluticasone Nasal [Flonase] 1 actuation NS BID #1 bottle 04/04/18 Ibuprofen [Motrin Tab] 1 tab PO Q6 PRN #20 tab 04/04/18 guaiFENesin/Dextromethorphan 1 - 2 tab PO Q12 PRN #20 tab 04/04/18 [guaiFENesin/DM 600-30 mg] - Allergies Allergies/Adverse Reactions: Allergies Allergy/AdvReac Type Severity Reaction Status Date / Time fluconazole [From Diflucan] Allergy SWELLING Verified 02/11/18 19:10 Review of Systems ROS Statement: Except As Marked, All Systems Reviewed And Found Negative Constitutional: Positive for: Fever, Chills ENT: Positive for: Nose Congestion Cardiovascular: Positive for: Chest Pain Respiratory: Positive for: Cough, Sputum Musculoskeletal: Positive for: Arm Pain Physical Exam - Reviewed Nursing Documentation Reviewed: Yes Vital Signs Reviewed: Yes - Physical Exam Appears: Positive for: Well, Non-toxic, No Acute Distress Head Exam: Positive for: ATRAUMATIC, NORMAL INSPECTION, NORMOCEPHALIC Skin: Positive for: Normal Color Eye Exam: Positive for: Normal appearance ENT: Positive for: TM Is/Are (clear bilaterally), Nasal Congestion. Negative for: Pharyngeal Erythema, Tonsillar Exudate, Tonsillar Swelling Cardiovascular/Chest: Positive for: Regular Rate, Rhythm Respiratory: Positive for: Normal Breath Sounds Gastrointestinal/Abdominal: Positive for: Normal Exam Back: Positive for: Normal Inspection Extremity: Positive for: Normal ROM, Other (palpable cord distal medial right upper arm; no erythema, warmth noted) Neurologic/Psych: Positive for: Alert, Oriented (x3) - Laboratory Results Result Diagrams: 04/03/18 22:02 04/03/18 22:02 - ECG ECG: Positive for: Viewed By Me (reviewed by ED attending) ECG Rhythm: Positive for: Sinus Rhythm, Nonspecific Changes O2 Sat by Pulse Oximetry: 97 Pulse Ox Interpretation: Normal - Radiology X-Ray: Viewed By Me X-Ray Interpretation: No Acute Disease - Progress ED Course And Treament: -cbc -cmp -lactic acid -influenza -cxr -ekg -venous duplex RUE -IV toradol -duoneb EXAM: US examination, right upper extremity veins. CLINICAL HISTORY: Rt under arm pain, flu like symptoms TECHNIQUE: Real-time ultrasound examination performed with image documentation. COMPARISON: None provided. FINDINGS: Right internal jugular, subclavian, axillary, brachial, basilic and cephalic veins demonstrate normal compression, augmentation and phasic flow. IMPRESSION: No evidence for acute dvt in the right upper extremity. Patient educated on findings, discharged with rx Flonase, Mucinex-DM, Albuterol HFA, ibuprofen Advised warm compresses to axilla area. Increase fluid intake, rest Follow up with PMD within 2-3 days Return precautions given Disposition - Clinical Impression Clinical Impression: Pain in right axilla, URI (upper respiratory infection) - Patient ED Disposition Is Patient to be Admitted: No Counseled Patient/Family Regarding: Studies Performed, Diagnosis, Need For Followup, Rx Given - Disposition Disposition: Routine/Home Disposition Time: 00:53 Condition: CRITICAL Prescriptions: Albuterol HFA [Ventolin HFA 90 mcg/actuation (8 g)] 1 puff IH Q4 PRN #1 inh PRN Reason: Wheezing Fluticasone Nasal [Flonase] 1 actuation NS BID #1 bottle guaiFENesin/Dextromethorphan [guaiFENesin/DM 600-30 mg] 1 - 2 tab PO Q12 PRN #20 tab PRN Reason: cough and congestion Ibuprofen [Motrin Tab] 1 tab PO Q6 PRN #20 tab PRN Reason: Pain, Moderate (4-7) Instructions: Viral Upper Respiratory Infection, Adult (DC) Forms: [employer] (Samoan)
[2018-04-03 22:18] LABS: BASO # 0.1 K/uL (0.0-0.2); BASO % 0.9 % (0.0-2.0); EOS # 0.3 K/uL (0.0-0.7); EOS % 3.7 % (0.0-4.0); HEMOGLOBIN 12.5 g/dL (12.0-16.0); LYMPH # 2.6 K/uL (1.0-4.3); LYMPH % 34.2 % (20.0-40.0); MEAN CELL VOLUME 90.7 fl (81.0-99.0); MEAN CORPUSCULAR HEMOGLOBIN 30.7 pg (27.0-31.0); MEAN CORPUSCULAR HGB CONC 33.8 g/dL (33.0-37.0); MEAN PLATELET VOLUME 8.4 fl (7.2-11.7); MONO # 0.8 K/uL (0.0-0.8); MONO % 10.9 % (0.0-10.0); NEUT # 3.9 K/uL (1.8-7.0); NEUT % 50.3 % (50.0-75.0); RBC 4.08 Mil/uL (3.80-5.20); RED CELL DISTRIBUTION WIDTH 14.7 % (11.5-14.5); WHITE BLOOD COUNT 7.7 K/uL (4.8-10.8)
[2018-04-03] MEDS ORDERED: Albuterol-Ipratrop 3 mg / 0.5 (3 ml) UD ONE (22:24)
[2018-04-03 22:27] LABS: ALB/GLOB RATIO 1.3 (1.0-2.1); ALBUMIN 4.2 g/dL (3.5-5.0); ALT/SGPT 21 U/L (9-52); AST/SGOT 26 U/L (14-36); BLOOD UREA NITROGEN 15 mg/dl (7-17); GFR NON-AFRICAN AMERICAN > 60
--- NOTE | 2018-04-04 08:23 | RAD ---
Date of service: 04/03/2018 HISTORY: cough, congestion COMPARISON: Chest radiographs 02/10/2017. TECHNIQUE: Chest PA and lateral FINDINGS: LUNGS: No active pulmonary disease. PLEURA: No significant pleural effusion identified. No pneumothorax apparent. CARDIOVASCULAR: No aortic atherosclerotic calcification present. Normal cardiac size. No pulmonary vascular congestion. OSSEOUS STRUCTURES: No significant abnormalities. VISUALIZED UPPER ABDOMEN: Normal. OTHER FINDINGS: None. IMPRESSION: No interval acute cardiopulmonary disease appreciated.
--- NOTE | 2018-04-04 11:13 | US ---
Date of service: 04/03/2018 PROCEDURE: Right Upper Extremity Venous Doppler HISTORY: right arm pain/swelling COMPARISON: None available. TECHNIQUE: Right upper extremity deep veins, including the lower internal jugular, subclavian, axillary and brachial veins, were evaluated for flow, compressibility and respiratory phasicity. Superficial basilic and cephalic veins were evaluated as well. FINDINGS: Normal flow, compressibility and respiratory phasicity was observed in the right upper extremity deep veins. IMPRESSION: No evidence of deep venous thrombosis in the right upper extremity. The preliminary findings for this examination were reported by [facility] at 12:29 a.m. on 04/04/2018. There is concurrence of this report with the preliminary findings.
--- NOTE | 2018-04-07 12:25 | CARD ---
APPROVED REPORT Date of service: 04/03/2018 EKG Measurement Heart [id number] <Conclusion> Normal sinus rhythm Normal Electrocardiogram
== END 2018-04-04 01:00 | disposition home or self-care (01) ==
LOC: H.ER 19:37
DX: J06.9 Acute upper respiratory infection, unspecified (principal); M79.621 Pain in right upper arm; J45.909 Unspecified asthma, uncomplicated
CPT/HCPCS: 71046; 80053; 81025; 83605; 84484; 85025; 87804; 93005; 93971; 94640; 96374; 99284; J1885